=== PATIENT | female | born 1995 | race African-American/Black ===

== ENCOUNTER 2020-04-08 15:07 | Outpatient (REF) | payer MEDICARE, MEDICAID, SELFPAY ==
[2020-04-08 15:37] LABS: MANUAL DIFF FLAG NO
[2020-04-08 15:43] LABS: Basophils Percent Auto 0.2 % (0-2); Eosinophils Absolute Auto 0.1 X10*3/uL (0.0-0.4); Eosinophils Percent Auto 0.7 % (0-4); Hematocrit 38.5 % (37-47); Hemoglobin 12.2 g/dl (12.0-16.0); Imm Gran Abs Auto 0.03 X10*3/uL (0.00-0.03); Imm Gran Pct Auto 0.3 % (0.0-0.4); Lymphocytes Absolute Auto 4.8 X10*3/uL (1.2-4.9); Lymphocytes Percent Auto 52.4 % (20-40); Mean Corpuscular HGB Conc 31.7 g/dl (31.0-35.0); Mean Corpuscular Hemoglobin 26.8 pg (27.0-33.0); Mean Corpuscular Volume 84.4 fL (80-98); Mean Platelet Volume 8.9 fL (9.4-12.3); Monocytes Absolute Auto 0.4 X10*3/uL (0.1-1.2); Monocytes Percent Auto 4.7 % (2-11); Neutrophils Absolute Auto 3.8 X10*3/uL (2.0-8.3); Neutrophils Percent Auto 41.7 % (45-73); Platelet Count 350 X10*3/uL (160-400); Red Blood Count 4.56 X10*6/uL (4.20-5.50); Red Cell Distribution Width 12.6 % (11.0-16.0); White Blood Count 9.2 X10*3/uL (4.8-10.8)
[2020-04-08 16:17] LABS: Iron 81 mcg/dL (30-160); Percent Iron Saturation 22 % (15-50); Total Iron Binding Capacity 368 mcg/dL (228-428); Unsaturated Iron Binding 287 ug/dL
[2020-04-08 16:38] LABS: TSH reflex Free T4 0.81 mIU/mL (0.32-4.0)
[2020-04-08 16:51] LABS: Folate 14.4 ng/mL (> or = 4.0); Vitamin B12 519 pg/mL (200-900)
[2020-04-08 17:49] LABS: Estimated Average Glucose 151 mg/dL; Hemoglobin A1c % 6.9 %
[2020-04-09 04:22] LABS: HBS Num1 0.35 mIU/mL (0-7.99); HBc Num1 0.37 S/CO (0.00-0.79); Hepatitis B Core Antibody Nonreactive (Nonreactive); ~HepC Num1 14.27 S/CO (0.00-0.79); ~Hepatitis B Surface Antibody NONREACTIVE (Nonreactive); ~Hepatitis C Antibody Reactive (Nonreactive)
[2020-04-09 04:34] LABS: HBsAGNum1 0.35 S/CO (0.00-0.99); Hepatitis B Surface Antigen Negative (Negative)
[2020-04-14 22:27] LABS: Hepatitis C Genotype Not Detected
== END 2020-04-08 15:08 | disposition home or self-care (01) ==
LOC: HO.LAB 15:07
PROVIDERS: PCP Physician Assistant; Visit Provider Physician Assistant
DX: Z13.1 Encounter for screening for diabetes mellitus (principal); B18.2 Chronic viral hepatitis C; Z11.3 Encounter for screening for infections with a predominantly sexual mode of transmission; R20.2 Paresthesia of skin
CPT/HCPCS: 36415; 82607; 82746; 83036; 83540; 84443; 85025; 86704; 86706; 86803; 87340; 87902

== ENCOUNTER 2020-05-19 15:18 | Outpatient (REF) | payer MEDICARE, MEDICAID, SELFPAY ==
[2020-05-20 04:13] LABS: HIV AB/AG Nonreactive (Nonreactive); HIV Num 1 0.08 S/CO (0.00-0.99)
[2020-05-30 12:03] LABS: Hepatitis C Genotype Not Detected
== END 2020-05-19 15:19 | disposition home or self-care (01) ==
LOC: HO.LAB 15:18
PROVIDERS: Absent Provider Nurse Practitioner; PCP Physician Assistant; Visit Provider Physician Assistant
DX: B18.2 Chronic viral hepatitis C (principal)
CPT/HCPCS: 87389; 87902

== ENCOUNTER → 2020-05-20 13:49 | Outpatient (BNVA) | payer MEDICARE, MEDICAID, SELFPAY | PROVIDERS: PCP Physician Assistant; Referring Provider Physician Assistant; Visit Provider Nurse Practitioner | DX: Z13.89 Encounter for screening for other disorder (principal) | CPT/HCPCS: Q3014 ==

== ENCOUNTER 2020-06-07 14:25 | Outpatient (REF) | payer MEDICARE, MEDICAID, SELFPAY ==
[2020-06-08 11:56] LABS: BV Int Neg Control Negative (Negative); BV Int Pos Control Positive (Positive)
[2020-06-09 21:42] LABS: C. trachomatis RNA TMA NOT DETECTED (NOT DETECTED); N. gonorrhoeae RNA TMA NOT DETECTED (NOT DETECTED)
== END 2020-06-07 14:26 | disposition home or self-care (01) ==
LOC: HO.LAB 14:25
PROVIDERS: PCP Physician Assistant; Visit Provider Advanced Practice Midwife
DX: Z30.41 Encounter for surveillance of contraceptive pills (principal); Z32.02 Encounter for pregnancy test, result negative; N92.1 Excessive and frequent menstruation with irregular cycle; R35.0 Frequency of micturition; N90.89 Other specified noninflammatory disorders of vulva and perineum; R03.0 Elevated blood-pressure reading, without diagnosis of hypertension; F17.210 Nicotine dependence, cigarettes, uncomplicated
CPT/HCPCS: 81025; 87255; 87480; 87491; 87510; 87591; 87660; 99212

== ENCOUNTER 2020-06-29 09:05 | Outpatient (REF) | payer MEDICARE, MEDICAID, SELFPAY ==
[2020-06-29 16:15] LABS: Glucose Urine UA >=1000 MG/DL (NEG); Leukocyte Esterase Urine NEG (NEG); Nitrite Urine NEG (NEG); Specific Gravity - Urine 1.015 (1.005-1.025); Urine Blood NEG (NEG); Urine Ketones NEG (NEG); Urine Protein NEG (NEG-TRACE)
[2020-06-29 16:17] LABS: Appearance Urine HAZY; Color Urine YELLOW
[2020-06-29 16:25] LABS: Bacteria Urine TRACE /LPF; RBC Urine 0 /HPF (0); Squamous Epithelial Cell Urine 1+ /LPF; WBC Urine 0 /HPF (0-4)
[2020-06-30 09:47] LABS: BV Int Neg Control Negative (Negative); BV Int Pos Control Positive (Positive)
== END 2020-06-29 09:06 | disposition home or self-care (01) ==
LOC: HO.LAB 09:05
PROVIDERS: PCP Physician Assistant; Visit Provider Advanced Practice Midwife
DX: N76.0 Acute vaginitis (principal); L29.2 Pruritus vulvae; R35.0 Frequency of micturition
CPT/HCPCS: 81001; 87480; 87510; 87660; 99212

== ENCOUNTER 2020-07-23 11:52 | Outpatient (REF) | payer MEDICARE, MEDICAID, SELFPAY ==
[2020-07-23 13:16] LABS: Hematocrit 40.7 % (37-47); Hemoglobin 12.7 g/dl (12.0-16.0); Mean Corpuscular HGB Conc 31.2 g/dl (31.0-35.0); Mean Corpuscular Hemoglobin 26.6 pg (27.0-33.0); Mean Corpuscular Volume 85.3 fL (80-98); Mean Platelet Volume 9.9 fL (9.4-12.3); Platelet Count 318 X10*3/uL (160-400); Red Blood Count 4.77 X10*6/uL (4.20-5.50)
[2020-07-23 13:45] LABS: Alanine Aminotransferase 27 U/L (0-31); Albumin Level 4.1 g/dL (3.5-5.0); Alkaline Phosphatase 74 U/L (39-117); Anion Gap 10 (12-20); Aspartate Amino Transferase 24 U/L (5-31); Bilirubin Total 0.9 mg/dL (0.0-1.0); Blood Urea Nitrogen 8 mg/dL (9-16); Calcium 9.2 mg/dL (8.4-10.2); Carbon Dioxide 24 mmol/L (22-29); Chloride 102 mmol/L (96-108); Cholesterol 222 mg/dL; Estimated Glomerular Filt Rate > 60; Glucose Fasting 199 mg/dL (60-99); HDL Cholesterol 47 mg/dL; LDL Cholesterol Calculated 153 mg/dl; Sodium 132 mmol/L (135-145); Total Protein 7.2 g/dL (6.5-8.0); Triglycerides 111 mg/dL
[2020-07-23 13:56] LABS: Glucose Urine UA NEG (NEG); Leukocyte Esterase Urine NEG (NEG); Nitrite Urine NEG (NEG); Specific Gravity - Urine 1.025 (1.005-1.025); Urine Blood NEG (NEG); Urine Ketones 15 MG/DL (NEG); Urine Protein TRACE MG/DL (NEG-TRACE)
[2020-07-23 14:00] LABS: Appearance Urine CLEAR; Color Urine YELLOW
[2020-07-23 14:06] LABS: TSH reflex Free T4 0.87 uIU/mL (0.32-4.0)
[2020-07-23 14:47] LABS: Microalbum/Creatinine Ratio Ur 4.2 ug/mg cr
[2020-07-25 03:56] LABS: C. trachomatis RNA TMA NOT DETECTED (NOT DETECTED); N. gonorrhoeae RNA TMA NOT DETECTED (NOT DETECTED)
== END 2020-07-23 11:53 | disposition home or self-care (01) ==
LOC: HO.LAB 11:52
PROVIDERS: Advanced Practice Midwife; PCP Physician Assistant; Visit Provider Physician Assistant
DX: E11.65 Type 2 diabetes mellitus with hyperglycemia (principal); I10 Essential (primary) hypertension; N89.8 Other specified noninflammatory disorders of vagina; N92.1 Excessive and frequent menstruation with irregular cycle; R35.0 Frequency of micturition; B18.2 Chronic viral hepatitis C; Z11.3 Encounter for screening for infections with a predominantly sexual mode of transmission; Z11.8 Encounter for screening for other infectious and parasitic diseases
CPT/HCPCS: 36415; 80053; 80061; 81003; 82043; 84443; 85027; 87491; 87591

== ENCOUNTER 2020-10-18 13:43 | Outpatient (REF) | payer OTHER, SELFPAY ==
[2020-10-19 05:48] LABS: CT PCR NOT DETECTED (Not Detect.); NG PCR NOT DETECTED (Not Detect.)
[2020-10-19 10:47] LABS: BV Int Neg Control Negative (Negative); BV Int Pos Control Positive (Positive)
== END 2020-10-18 13:44 | disposition home or self-care (01) ==
LOC: HO.LAB 13:43
PROVIDERS: Advanced Practice Midwife; Visit Provider Advanced Practice Midwife
DX: Z01.411 Encounter for gynecological examination (general) (routine) with abnormal findings (principal); N92.1 Excessive and frequent menstruation with irregular cycle; N89.8 Other specified noninflammatory disorders of vagina; E11.65 Type 2 diabetes mellitus with hyperglycemia; F17.200 Nicotine dependence, unspecified, uncomplicated
CPT/HCPCS: 87480; 87491; 87510; 87591; 87660

== ENCOUNTER 2020-12-29 15:08 | Outpatient (REF) | payer OTHER, SELFPAY ==
[2020-12-29 15:42] LABS: Hematocrit 39.2 % (37-47); Hemoglobin 12.3 g/dl (12.0-16.0); Mean Corpuscular HGB Conc 31.4 g/dl (31.0-35.0); Mean Corpuscular Hemoglobin 26.9 pg (27.0-33.0); Mean Corpuscular Volume 85.6 fL (80-98); Platelet Count 359 X10*3/uL (160-400); Red Blood Count 4.58 X10*6/uL (4.20-5.50); Red Cell Distribution Width 12.8 % (11.0-16.0); White Blood Count 8.6 X10*3/uL (4.8-10.8)
[2020-12-29 15:49] LABS: Estimated Average Glucose 111 mg/dL; Hemoglobin A1c % 5.5 %
[2020-12-29 15:59] LABS: Alanine Aminotransferase 17 U/L (0-31); Albumin Level 4.6 g/dL (3.5-5.0); Alkaline Phosphatase 67 U/L (39-117); Anion Gap 14 (12-20); Aspartate Amino Transferase 21 U/L (5-31); Bilirubin Direct 0.2 mg/dL (0.0-0.5); Bilirubin Total 0.5 mg/dL (0.0-1.0); Blood Urea Nitrogen 9 mg/dL (9-16); Calcium 10.1 mg/dL (8.4-10.2); Carbon Dioxide 24 mmol/L (22-29); Chloride 104 mmol/L (96-108); Cholesterol 169 mg/dL; Estimated Glomerular Filt Rate > 60; Glucose Random 125 mg/dL (60-115); HDL Cholesterol 48 mg/dL; LDL Cholesterol Calculated 107 mg/dl; Potassium 4.1 mmol/L (3.3-5.1); Sodium 138 mmol/L (135-145); Triglycerides 71 mg/dL
[2020-12-29 16:28] LABS: Glucose Urine UA NEG (NEG); Leukocyte Esterase Urine NEG (NEG); Nitrite Urine NEG (NEG); Specific Gravity - Urine >= 1.030 (1.005-1.025); Urine Blood NEG (NEG); Urine Ketones NEG (NEG); Urine Protein TRACE MG/DL (NEG-TRACE)
[2020-12-29 16:32] LABS: Appearance Urine HAZY; Color Urine AMBER
== END 2020-12-29 15:09 | disposition home or self-care (01) ==
LOC: HO.LAB 15:08
PROVIDERS: PCP Physician Assistant; Visit Provider Internal Medicine
DX: Z01.818 Encounter for other preprocedural examination (principal)
CPT/HCPCS: 36415; 80048; 80061; 80076; 81003; 83036; 85027

== ENCOUNTER 2021-04-09 17:25 | Outpatient (REF) | payer OTHER, SELFPAY ==
[2021-04-09 17:33] LABS: Appearance Urine CLEAR; Color Urine YELLOW; Glucose Urine UA NEG (NEG); Leukocyte Esterase Urine NEG (NEG); Nitrite Urine NEG (NEG); Specific Gravity - Urine 1.025 (1.005-1.025); UACC Culture Trigger NO; Urine Blood 2+ (NEG); Urine Ketones NEG (NEG); Urine Protein TRACE MG/DL (NEG-TRACE)
[2021-04-09 17:41] LABS: Bacteria Urine 1+ /LPF; RBC Urine 0-2 /HPF (0); Squamous Epithelial Cell Urine 2+ /LPF; WBC Urine 0 /HPF (0-4)
== END 2021-04-09 17:26 | disposition home or self-care (01) ==
LOC: HO.LNP 17:25
PROVIDERS: Visit Provider Physician Assistant Medical
DX: R35.89 Other polyuria (principal)
CPT/HCPCS: 81001

== ENCOUNTER 2021-04-19 10:08 | Outpatient (REF) | payer OTHER, SELFPAY ==
--- NOTE | ~2021-04-19 | XR_ITS ---
EXAMINATION: XR ABDOMEN COMPLETE CLINICAL INDICATION: Dysuria COMPARISON: None TECHNIQUE: 2 views of the abdomen. FINDINGS: The bowel gas pattern is normal with no evidence of ileus or obstruction. No unusual soft tissue calcifications are noted. The bones are unremarkable. XR/XR abdomen 3V IMPRESSION: Unremarkable examination.
[2021-04-19 11:01] LABS: Hematocrit 36.9 % (37.0-47.0); Hemoglobin 11.6 g/dl (12.0-16.0); Mean Corpuscular HGB Conc 31.4 g/dl (31.0-35.0); Mean Corpuscular Hemoglobin 26.9 pg (27.0-33.0); Mean Corpuscular Volume 85.4 fL (80.0-98.0); Mean Platelet Volume 8.8 fL (9.4-12.3); Platelet Count 355 X10*3/uL (160-400); Red Blood Count 4.32 X10*6/uL (4.20-5.50); Red Cell Distribution Width 13.2 % (11.0-16.0); White Blood Count 7.8 X10*3/uL (4.8-10.8)
[2021-04-19 11:22] LABS: Estimated Average Glucose 117 mg/dL; Hemoglobin A1c % 5.7 %
[2021-04-19 11:34] LABS: Alanine Aminotransferase 19 U/L (0-31); Albumin Level 4.2 g/dL (3.5-5.0); Alkaline Phosphatase 62 U/L (39-117); Anion Gap 12 (12-20); Aspartate Amino Transferase 19 U/L (5-31); Bilirubin Total 0.4 mg/dL (0.0-1.0); Blood Urea Nitrogen 9 mg/dL (9-16); Calcium 9.3 mg/dL (8.4-10.2); Carbon Dioxide 24 mmol/L (22-29); Chloride 106 mmol/L (96-108); Cholesterol 216 mg/dL; Estimated Glomerular Filt Rate > 60; Glucose Fasting 105 mg/dL (60-99); HDL Cholesterol 49 mg/dL; LDL Cholesterol Calculated 145 mg/dl; Potassium 4.2 mmol/L (3.3-5.1); Sodium 138 mmol/L (135-145); Total Protein 7.7 g/dL (6.5-8.0); Triglycerides 110 mg/dL
[2021-04-19 12:00] LABS: TSH reflex Free T4 1.08 uIU/mL (0.32-4.0)
[2021-04-19 12:31] LABS: Creatinine Urine 195.15 mg/dL; Microalbum/Creatinine Ratio Ur 3.5 ug/mg cr
== END 2021-04-19 10:09 | disposition home or self-care (01) ==
LOC: HO.XRAY 10:08
PROVIDERS: PCP Physician Assistant; Visit Provider Physician Assistant
DX: R30.0 Dysuria (principal); E11.65 Type 2 diabetes mellitus with hyperglycemia; I10 Essential (primary) hypertension
CPT/HCPCS: 36415; 74021; 80048; 80053; 80061; 82043; 83036; 84443; 85027

== ENCOUNTER 2021-07-07 10:35 | Outpatient (REF) | payer OTHER, SELFPAY ==
--- NOTE | ~2021-07-07 | XR_ITS ---
EXAMINATION: XR KUB XR THORACIC SPINE CLINICAL INFORMATION: Thoracic spine pain. COMPARISON: KUB done on 04/19/2021. TECHNIQUE: Single frontal view of the abdomen and pelvis, 2 images and frontal, lateral views of the thoracic spine, 4 images were obtained. FINDINGS: KUB: Significant fecal residual is noted within the large bowel. Multiple phleboliths are seen in the pelvis. No evidence of any abnormal bowel distention. The stomach is collapsed. Overall no significant change since 04/19/2021. Thoracic spine: The heights of the thoracic vertebrae are normal. The intervertebral disc heights are normal. The posterior appendages are intact. The paraspinal soft tissues are unremarkable. XR/XR KUB IMPRESSION: 1. The radiographs of the abdomen shows significant fecal residual, similar to prior study dated 04/19/2021. 2. The radiographs of the thoracic spine appear unremarkable.
--- NOTE | ~2021-07-07 | XR_ITS ---
EXAMINATION: XR KUB XR THORACIC SPINE CLINICAL INFORMATION: Thoracic spine pain. COMPARISON: KUB done on 04/19/2021. TECHNIQUE: Single frontal view of the abdomen and pelvis, 2 images and frontal, lateral views of the thoracic spine, 4 images were obtained. FINDINGS: KUB: Significant fecal residual is noted within the large bowel. Multiple phleboliths are seen in the pelvis. No evidence of any abnormal bowel distention. The stomach is collapsed. Overall no significant change since 04/19/2021. Thoracic spine: The heights of the thoracic vertebrae are normal. The intervertebral disc heights are normal. The posterior appendages are intact. The paraspinal soft tissues are unremarkable. XR/XR thoracic spine 2V IMPRESSION: 1. The radiographs of the abdomen shows significant fecal residual, similar to prior study dated 04/19/2021. 2. The radiographs of the thoracic spine appear unremarkable.
[2021-07-07 11:07] LABS: Hematocrit 38.9 % (37.0-47.0); Hemoglobin 12.3 g/dl (12.0-16.0); Mean Corpuscular HGB Conc 31.6 g/dl (31.0-35.0); Mean Corpuscular Hemoglobin 27.3 pg (27.0-33.0); Mean Corpuscular Volume 86.3 fL (80.0-98.0); Mean Platelet Volume 8.9 fL (9.4-12.3); Platelet Count 333 X10*3/uL (160-400); Red Blood Count 4.51 X10*6/uL (4.20-5.50); Red Cell Distribution Width 12.9 % (11.0-16.0); White Blood Count 8.9 X10*3/uL (4.8-10.8)
[2021-07-07 11:15] LABS: Estimated Average Glucose 123 mg/dL; Hemoglobin A1c % 5.9 %
[2021-07-07 11:49] LABS: Alanine Aminotransferase 18 U/L (0-31); Albumin Level 4.1 g/dL (3.5-5.0); Alkaline Phosphatase 98 U/L (39-117); Anion Gap 10 (12-20); Aspartate Amino Transferase 19 U/L (5-31); Bilirubin Total 0.4 mg/dL (0.0-1.0); Blood Urea Nitrogen 11 mg/dL (9-16); Calcium 9.8 mg/dL (8.4-10.2); Carbon Dioxide 28 mmol/L (22-29); Chloride 102 mmol/L (96-108); Cholesterol 221 mg/dL; Estimated Glomerular Filt Rate > 60; Glucose Fasting 156 mg/dL (60-99); HDL Cholesterol 51 mg/dL; LDL Cholesterol Calculated 141 mg/dl; Potassium 5.1 mmol/L (3.3-5.1); Sodium 135 mmol/L (135-145); Total Protein 7.6 g/dL (6.5-8.0); Triglycerides 149 mg/dL
[2021-07-07 12:05] LABS: Microalbum/Creatinine Ratio Ur 4.1 ug/mg cr
[2021-07-07 12:15] LABS: TSH reflex Free T4 1.51 uIU/mL (0.32-4.0)
== END 2021-07-07 10:36 | disposition home or self-care (01) ==
LOC: HO.XRAY 10:35
PROVIDERS: PCP Physician Assistant; Visit Provider Physician Assistant
DX: R10.9 Unspecified abdominal pain (principal); M54.6 Pain in thoracic spine; E11.65 Type 2 diabetes mellitus with hyperglycemia; E66.01 Morbid (severe) obesity due to excess calories; Z68.36 Body mass index [BMI] 36.0-36.9, adult
CPT/HCPCS: 36415; 72070; 74018; 80053; 80061; 82043; 83036; 84443; 85027

== ENCOUNTER 2021-12-01 11:13 | Outpatient (REF) | payer OTHER, SELFPAY ==
[2021-12-01 12:10] LABS: Hematocrit 39.4 % (37.0-47.0); Hemoglobin 12.5 g/dl (12.0-16.0); Mean Corpuscular HGB Conc 31.7 g/dl (31.0-35.0); Mean Corpuscular Hemoglobin 27.2 pg (27.0-33.0); Mean Corpuscular Volume 85.7 fL (80.0-98.0); Mean Platelet Volume 9.1 fL (9.4-12.3); Platelet Count 362 X10*3/uL (160-400); Red Cell Distribution Width 13.3 % (11.0-16.0)
[2021-12-01 12:18] LABS: Estimated Average Glucose 131 mg/dL; Hemoglobin A1c % 6.2 %
[2021-12-01 12:41] LABS: Alanine Aminotransferase 13 U/L (0-31); Albumin Level 4.3 g/dL (3.5-5.0); Alkaline Phosphatase 69 U/L (39-117); Anion Gap 14 (12-20); Aspartate Amino Transferase 15 U/L (5-31); Bilirubin Total 0.7 mg/dL (0.0-1.0); Blood Urea Nitrogen 12 mg/dL (9-16); Calcium 9.4 mg/dL (8.4-10.2); Carbon Dioxide 24 mmol/L (22-29); Chloride 106 mmol/L (96-108); Cholesterol 237 mg/dL; Estimated Glomerular Filt Rate > 60; Glucose Fasting 166 mg/dL (60-99); HDL Cholesterol 47 mg/dL; LDL Cholesterol Calculated 174 mg/dl; Potassium 4.8 mmol/L (3.3-5.1); Sodium 139 mmol/L (135-145); Total Protein 7.6 g/dL (6.5-8.0); Triglycerides 84 mg/dL
[2021-12-01 13:01] LABS: TSH reflex Free T4 0.45 uIU/mL (0.32-4.0)
[2021-12-01 13:21] LABS: Appearance Urine CLOUDY; Color Urine YELLOW; Glucose Urine UA NEG (NEG); Leukocyte Esterase Urine NEG (NEG); Nitrite Urine NEG (NEG); PH 6.5 (5.0-8.0); UACC Culture Trigger NO; Urine Blood 3+ (NEG); Urine Ketones 5 MG/DL (NEG); Urine Protein 1+ MG/DL (NEG-TRACE)
[2021-12-01 13:32] LABS: RBC Urine TNTC /HPF (0); WBC Urine 0 /HPF (0-4)
[2021-12-01 13:33] LABS: Squamous Epithelial Cell Urine 1+ /LPF
== END 2021-12-01 11:14 | disposition home or self-care (01) ==
LOC: HO.LAB 11:13
PROVIDERS: Visit Provider Physician Assistant
DX: R10.9 Unspecified abdominal pain (principal); E11.65 Type 2 diabetes mellitus with hyperglycemia
CPT/HCPCS: 36415; 80048; 80053; 80061; 81001; 83036; 84443; 85027

== ENCOUNTER 2022-07-13 13:57 | Outpatient (REF) | payer OTHER, SELFPAY ==
[2022-07-13 15:55] LABS: CT PCR NOT DETECTED (Not Detect.); NG PCR NOT DETECTED (Not Detect.)
== END 2022-07-13 13:58 | disposition home or self-care (01) ==
LOC: HO.HMGCLNP 13:57
PROVIDERS: Visit Provider Internal Medicine
DX: Z20.2 Contact with and (suspected) exposure to infections with a predominantly sexual mode of transmission (principal); R30.0 Dysuria
CPT/HCPCS: 0353U; 87086

== ENCOUNTER → 2022-08-29 11:39 | Outpatient (BNVA) | payer OTHER, SELFPAY | PROVIDERS: PCP Physician Assistant; Visit Provider Advanced Practice Midwife | DX: N92.6 Irregular menstruation, unspecified (principal); E11.9 Type 2 diabetes mellitus without complications; F17.210 Nicotine dependence, cigarettes, uncomplicated; F19.11 Other psychoactive substance abuse, in remission; Z87.42 Personal history of other diseases of the female genital tract; Z30.09 Encounter for other general counseling and advice on contraception | CPT/HCPCS: 99212 ==

== ENCOUNTER 2022-09-04 13:59 | Outpatient (REF) | payer OTHER, SELFPAY ==
--- NOTE | ~2022-09-04 | US_ITS ---
EXAMINATION: US PELVIS CLINICAL INFORMATION: Heavy periods with cramping. COMPARISON: None available. TECHNIQUE: Ultrasound of the pelvis is performed using both transabdominal and transvaginal transducers along with Doppler. Transvaginal imaging is performed due to inadequate visualization transabdominally. FINDINGS: UTERUS: The uterus is anteverted and measures 9.9 x 4.2 x 5.8 cm. The double wall endometrial thickness is 0.4 mm. The uterus is smooth in contour and has normal myometrial echogenicity. No visible fibroid. Nabothian cysts are present in the cervix. ADNEXA: Both ovaries are visualized. There is normal color flow to the adnexa. There is no ovarian torsion. There is no pelvic ascites or fluid collection. Right ovary measures 4.7 x 2.3 x 3.5 cm for a volume of 19.6 mL. Left ovary measures 4.4 x 2.0 x 2.4 cm for a volume of 11 mL. US/US pelvic and transvaginal IMPRESSION: Negative exam.
== END 2022-09-04 14:00 | disposition home or self-care (01) ==
LOC: HO.HMGCX 13:59
PROVIDERS: PCP Physician Assistant; Visit Provider Advanced Practice Midwife
DX: Z87.42 Personal history of other diseases of the female genital tract (principal)
CPT/HCPCS: 76830; 76856

== ENCOUNTER → 2022-09-20 09:33 | Outpatient (BNVA) | payer OTHER, SELFPAY | PROVIDERS: PCP Physician Assistant; Visit Provider Advanced Practice Midwife | DX: Z30.09 Encounter for other general counseling and advice on contraception (principal); N88.8 Other specified noninflammatory disorders of cervix uteri; E11.65 Type 2 diabetes mellitus with hyperglycemia; I38 Endocarditis, valve unspecified; F17.210 Nicotine dependence, cigarettes, uncomplicated; F14.20 Cocaine dependence, uncomplicated; F11.20 Opioid dependence, uncomplicated; Z99.2 Dependence on renal dialysis; Z87.42 Personal history of other diseases of the female genital tract | CPT/HCPCS: 99212 ==

== ENCOUNTER 2022-10-03 13:00 | Outpatient (RCR) | payer OTHER, SELFPAY ==
--- NOTE | 2022-09-12 15:07 | MHC.PT.EP ---
[facility] [place] Office [place] Office [place] Office [address] [phone] F: [phone] F: [phone] F: [phone] F: [phone] Physical Therapy Plan of Care Date of Evaluation: Date of Surgery: Diagnosis: This is a 27 yo female presenting to skilled PT with a script for pain in thoracic spine. Assessment: This is a 27 yo female presenting to skilled PT with a script for pain in thoracic spine. Patient reporting that she has always had this back pain however has been increasing lately after stopping her suboxone. Pain is constant. Pain is located R side low back and deep . This is described as sharp and achy. Pain increases with stress, sleeping and waking in AM, activity (the next day or later on that day). She feels better with sitting but worse with laying down. Denies radiating symptoms or numbness or tingling. Assessment reveals pain that ranges from 3-10/10. Patient demos decreased lumbar and thoracic spine ROM, strength of core, back and glut, TTP at ITB and R side low back. Based on functional limitations, impaired QOL and decreased pain management patient is a good candidate for skilled PT 2x/wk for 4wks. Frequency and Duration: The patient will be seen 2x/wk for 4wks Short Term Goals: I in HEP Patient will improve lumbar ROM by at least 10% Patient will demo proper core stab in sitting, standing and supine without cues from PT Stuntman Goals: Patient will improve pain to no more than 4/10 at the worst Patient will demo proper squat and lifting techniques without pain or cues from PT Patient ill improve hip/glut strength by at least 1 grade Patient will improve oswestry by at least 10 points Treatment Plan: Modalities to reduce pain, spasms and effusion. Manual therapy to restore motion and function. Therapeutic exercise to improve strength and flexibility. Neuromuscular re-education for posture and balance. Therapeutic activities to return to functional activities of daily living. Electronically signed by: Loly Dias PT Please sign and return to therapist. Thank you for your referral.
--- NOTE | 2022-10-24 12:45 | MHC.PT.DC ---
[facility] [place] Office [place] Office [place] Office [address] [phone] F: [phone] F: [phone] F: [phone] F: [phone] Physical Therapy Discharge Report Diagnosis: This is a 27 yo female presenting to skilled PT with a script for pain in thoracic spine. Date of Surgery: Date of Evaluation: 09/12/22 Date of Discharge: 10/24/22 Treatments to Date: 3 Cancellations to Date: 0 No Shows to Date: 0 Discharge Status: Patient Elected to Stop Visit Non-compliance Discharge Summary: Patient came to eval and 2 appointments, has an HEP, called to self DC as she has other priorities. Electronically signed by: Loly Dias, PT Please sign and return to therapist. Thank you for your referral.
== END 2022-10-24 12:45 | disposition home or self-care (01) ==
LOC: HO.PTCHIC 13:00
PROVIDERS: Visit Provider Physician Assistant
DX: M54.6 Pain in thoracic spine (principal)
CPT/HCPCS: 97110; 97161

== ENCOUNTER 2023-06-20 10:15 | Outpatient (REF) | payer OTHER, SELFPAY ==
[2023-06-21 04:49] LABS: CT PCR NOT DETECTED (Not Detect.); NG PCR NOT DETECTED (Not Detect.)
[2023-06-21 09:54] LABS: BV Int Neg Control Negative (Negative); BV Int Pos Control Positive (Positive)
== END 2023-06-20 10:16 | disposition home or self-care (01) ==
LOC: HO.LNP 10:15
PROVIDERS: PCP Physician Assistant; Visit Provider Advanced Practice Midwife
DX: Z01.419 Encounter for gynecological examination (general) (routine) without abnormal findings (principal); N92.1 Excessive and frequent menstruation with irregular cycle; R03.0 Elevated blood-pressure reading, without diagnosis of hypertension; R23.2 Flushing; F17.200 Nicotine dependence, unspecified, uncomplicated; F11.20 Opioid dependence, uncomplicated; Z20.2 Contact with and (suspected) exposure to infections with a predominantly sexual mode of transmission; Z79.899 Other long term (current) drug therapy
CPT/HCPCS: 0353U; 87480; 87510; 87660; 88142

== ENCOUNTER 2023-06-20 10:15 | Outpatient (AMB) | payer OTHER, SELFPAY ==
--- NOTE | 2023-06-20 10:18 | MHC.OFFVIS ---
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 (Boaz) Allergies seasonal Allergy (Unknown, Uncoded 06/20/23 10:23) unknown Medication List - Last Reconciled 06/20/23 by Claudia Rowe CNM acetaminophen 500 mg PO Q6H PRN 10 days atomoxetine 80 mg PO DAILY ibuprofen 800 mg PO Q8H 10 days norethindrone (contraceptive) 0.35 mg PO DAILY semaglutide (Ozempic) 0.25 mg (0.368 mL) subcut QWEEK 30 days Is last menstrual period known: No Post menopausal: No HPI Irregular Menses HPI Details Patient was scheduled for irregular bleeding but I missed took her visit for an annual exam and so we covered a lot of the issues in annual exam as well so the visit was converted. Patient has been doing very well and has been gradually losing weight. She has intentions of really working on about 50 more lb she would like to get to 200 and within eventual goal to get to 180. She says her diabetes is doing well she wishes the Ozempic would help her more with weight loss but that is okay she is doing the best she can. In reviewing her history she weaned off the Suboxone last spring and she is feeling well and she is doing very very well with her recovery. She did break-up with her partner though they are still talking and are still friends so anything is possible but for now she has not sexually active. She has been taking norethindrone control pills partly because of smoking and because of previous elevated blood pressures but her recent blood pressures were within normal limits. Since the 1st time she was weighed in this computer system she has lost a a net 30 lb!! She has had a question as to whether not she is ever had herpes last year she had a little cut on her clitoris that could have been suspicious and sometimes when she has having a bowel movement she feels little cuts in her rectum that she wonders if they could be herpes. There is nothing visible that she can see. She does also shaved closely in these areas and so that is a possibility as well [facility] Medical History Polysubstance abuse Endocarditis DMII (diabetes mellitus, type 2) History of renal dialysis Surgical History History of wisdom tooth extraction Family History Maternal Grandmother Diabetes Other Mental health disorder Substance use disorder Social History Housing: House Alcohol intake: current Alcohol intake frequency: holidays/special occasions only Patient Tobacco Use Status: Current everyday Tobacco user Tobacco use type: Cigarette Cigarettes Per Day: 7 e-Cigarette/Vaping Use: Never Used Second Hand Smoke Exposure: No Substance Use Type: Crack/Cocaine, IV Drugs and Opiates service: No Current occupational status: unemployed Gender identity: Female Cognitive needs: No Hearing needs: No Vision needs: No Female Reproductive History Menstrual Age of Menarche: 7 control method: pills Total pregnancies: 4 Ab induced: 3 Ab spontaneous: 1 Date of last pap smear: 02/20/20 (negative) Physical Exam Vital Signs: Last Vital Signs BP 120/76 06/20/23 10:19 BMI result Body Mass Index 34.6 Const General: healthy appearing, comfortable, no acute distress, well developed and alert Nutritional Appearance: average body habitus Orientation/consciousness: patient oriented x3 Limitations: no limitations HEENT Head: Yes normocephalic Neck Neck: Yes normal visual inspection Chest Chest palpation & inspection: normal inspection of the chest Breast/axilla inspection: normal inspection of the breasts and normal inspection of the axillae Breast/axilla palpation: normal palpation of the breasts and normal palpation of the axillae Resp Effort & Inspection: normal respiratory effort GI Inspection: Yes normal to inspection, No Abdominal wall edema and No distended Palpation (GI): Soft to palpation and nontender Other: Normal external exam vagina pink and moist cervix nulliparous midposition uterus is anteverted small mobile nontender good tone with Kegel adnexa not enlarged nontender. No lesions seen anywhere. It was a little bit of dark red mucousy menstrual type blood coming from os but it was scant. General: Yes bladder normal to palpation External Female Exam: normal external appearance and normal appearance of the urethra Speculum Exam - Vagina: normal appearance of the vagina, normal palpation and normal vaginal discharge Speculum Exam - Cervix: normal appearance of the cervix, normal palpation and nontender Bimanual exam- vagina & uterus: normal bimanual exam, normal palpation, uterine size normal, bladder normal to palpation, consistency normal, normal palpation, uterine mobility normal, uterine shape normal, No Cervical tenderness present, non-tender and no cervical motion tenderness Bimanual Exam- Adnexa, other: normal adnexae, no masses, normal and No adnexal tenderness Neuro General: patient oriented x3 Assessment & Plan Assessment & Plan (1) Family planning counseling: Code(s): Z30.09 - Encounter for other general counseling and advice on contraception (2) control counseling: Code(s): Z30.09 - Encounter for other general counseling and advice on contraception (3) Cervical cancer screening: Comment: Last Pap was negative 2019. Code(s): Z12.4 - Encounter for screening for malignant neoplasm of cervix (4) Tobacco dependence: Code(s): F17.200 - Nicotine dependence, unspecified, uncomplicated (5) Opiate dependence: Comment: States she has weaned off Suboxone and everything and is doing well. Code(s): F11.20 - Opioid dependence, uncomplicated Qualifiers: Substance use status: uncomplicated Qualified Code(s): F11.20 - Opioid dependence, uncomplicated (6) Elevated BP without diagnosis of hypertension: Code(s): R03.0 - Elevated blood-pressure reading, without diagnosis of hypertension (7) Well woman exam with routine gynecological exam: Code(s): Z01.419 - Encounter for gynecological examination (general) (routine) without abnormal findings (8) Encounter for screening examination for sexually transmitted disease: Code(s): Z11.3 - Encounter for screening for infections with a predominantly sexual mode of transmission (9) Irregular menstruation, unspecified: Code(s): N92.6 - Irregular menstruation, unspecified (10) Breakthrough bleeding on control pills: Code(s): N92.1 - Excessive and frequent menstruation with irregular cycle Plan -----Discussed in this visit the following: healthy balanced diet, regular and consistent exercise, getting recommended health screens, doing the best she can for her particular health concerns, kegel exercises, pap smear screening and followup recommendations, mammography screening and SBE, normal changes in cycles in her life stage--- . Discussed that it is possible to have breakthrough bleeding on any kind of control method at any time and it did not sound alarming. Discussed options of going off the pills altogether since she has not sexually active right now continuing on the norethindrone continuing on the norethindrone and stopping them at some point if she so chose and then if she needed control making sure that she would start again with her., or switching to combination control pills that discussion did not get as far as clarifying about cigarette smoking she decided to stick wi the pills th she is on for now and knows that she can stop them at some point if she so chooses. Discussed that I did not see any evidence of herpes at this present time discussed the waxing and waning nature and if she ever thought she had a real outbreak she could call for a prescription she can not really identify ever having had a very identifiable will outbreak. Congratulated her on her hard work both at losing the weight getting off the Suboxone and making positive changes in her life. Orders: Orders Bacterial Vaginosis Panel Today Z20.2 - Contact with and (suspected) exposure to infections with a predominantly sexual mode of transmission Pap Smear Today Z12.4 - Encounter for screening for malignant neoplasm of cervix CT NG by PCR Today Z20.2 - Contact with and (suspected) exposure to infections with a predominantly sexual mode of transmission Medications: Refilled norethindrone (contraceptive) 0.35 mg PO DAILY 84 tabs 4RF Coding Level of Care Code Est Pt Prev Care 18-39y(24697) Diagnoses Family planning counseling Z30.09 control counseling Z30.09 Cervical cancer screening Z12.4 Tobacco dependence F17.200 Uncomplicated opioid dependence F11.20 Substance use status: uncomplicated Elevated BP without diagnosis of hypertension R03.0 Well woman exam with routine gynecological exam Z01.419 Encounter for screening examination for sexually transmitted disease Z11.3 Irregular menstruation, unspecified N92.6 Breakthrough bleeding on control pills N92.1
[2023-06-20 10:19] VITALS: BP 120/76; BMI 34.6
== END 2023-06-20 11:21 | disposition home or self-care (01) ==
PROVIDERS: PCP Physician Assistant; Visit Provider Advanced Practice Midwife
DX: Z01.419 Encounter for gynecological examination (general) (routine) without abnormal findings (principal); N92.1 Excessive and frequent menstruation with irregular cycle; F17.200 Nicotine dependence, unspecified, uncomplicated; F11.21 Opioid dependence, in remission; R03.0 Elevated blood-pressure reading, without diagnosis of hypertension; Z11.3 Encounter for screening for infections with a predominantly sexual mode of transmission; N92.6 Irregular menstruation, unspecified
CPT/HCPCS: 99395

== ENCOUNTER 2024-01-14 13:16 | Outpatient (AMB) | payer OTHER, SELFPAY ==
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
[2024-01-14 13:30] VITALS: BP 110/66; PULSE 108; TEMP 36.8; O2SAT 98; BMI 35.7
== END 2024-01-14 14:27 | disposition home or self-care (01) ==
PROVIDERS: PCP Physician Assistant; Visit Provider Physician Assistant
DX: M54.2 Cervicalgia (principal)
CPT/HCPCS: 99213

== ENCOUNTER 2024-01-28 13:03 | Outpatient (AMB) | payer OTHER, SELFPAY ==
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
[2024-01-28 13:09] VITALS: BP 130/98; PULSE 112; O2SAT 98; BMI 35.7
== END 2024-01-28 14:21 | disposition home or self-care (01) ==
PROVIDERS: PCP Physician Assistant; Visit Provider Registered Nurse
DX: N30.00 Acute cystitis without hematuria (principal); Z13.9 Encounter for screening, unspecified
CPT/HCPCS: 81003; 82948; 99213

== ENCOUNTER 2024-01-28 13:47 | Outpatient (REF) | payer OTHER, SELFPAY ==
[2024-01-29 05:46] LABS: CT PCR NOT DETECTED (Not Detect.); NG PCR NOT DETECTED (Not Detect.)
== END 2024-01-28 13:48 | disposition home or self-care (01) ==
LOC: HO.LAB 13:47
PROVIDERS: Visit Provider Registered Nurse
DX: Z11.3 Encounter for screening for infections with a predominantly sexual mode of transmission (principal)
CPT/HCPCS: 87491; 87591

== ENCOUNTER 2024-02-07 08:22 | Outpatient (AMB) | payer OTHER, SELFPAY ==
--- NOTE | 2024-02-07 08:26 | MHC.PC.OV ---
Vital Signs 02/07/24 08:28 Height 5 ft 11 in Weight 255 lb 4 oz BMI 35.6 BP 120/78 Blood Pressure Location Lt brachial Position Sitting Pulse 105 H Pulse Source Pulse Oximeter Pulse Oximetry (%) 98 Oxygen Delivery Method Room Air Intake Visit Reasons: Medication info Intake Note: Patient is here to follow up on medication review. 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: Not Required per policy Accompanied by: Self / Same As Patient Allergies seasonal Allergy (Unknown, Uncoded 02/07/24 08:56) unknown Medication List - Last Reconciled 02/07/24 by Ramy Jackson PA-C atomoxetine 100 mg PO QAM semaglutide (Ozempic) 0.25 mg (0.368 mL) subcut QWEEK 30 days Tobacco use date assessed: 02/07/24 Dental Screening Dental Screen Date: 02/07/24 Did you have a dental visit in the last 12 months?: No Did you have a dental problem in the last 6 months where you did not have access to dental care?: No Was dental information given to patient?: Patient has dentist HPI Medication info HPI Details Patient is a 28 year female here today for a follow-up visit. ?Patient has a past medical history significant for opiate dependence, smoker ,history of endocarditis, type 2 diabetes. Concerns--> continues to have right-sided thoracic spine pain did get x-ray of her thoracic spine significant findings. She reports pain is intermittent at times even moderate to severe. She has done physical therapy in the past without significant relief. She is now willing to see pain management for possible injection to help reduce her pain ADD: She reports having a diagnosis of ADHD as a child and was treated with many different medications. She is now on Strattera 100 mg which seems to be helpful. She is now seeing a mental therapist and a psychiatrist .? Type 2 diabetes:? Was on metformin in the past which did control her diabetes. Now off of metformin and on Ozempic 0.25 mg. She is interested in higher dose of Ozempic for added benefit of weight loss as she has been having a difficult time losing weight. .. Opiate dependence (in remission):? She has completely weaned off Suboxone . Now been sober from street opiates over the last 6 years? [facility] Medical History Polysubstance abuse Endocarditis DMII (diabetes mellitus, type 2) History of renal dialysis Surgical History History of wisdom tooth extraction Family History Maternal Grandmother Diabetes Other Mental health disorder Substance use disorder Social History Housing: House Alcohol intake: current Alcohol intake frequency: holidays/special occasions only Patient Tobacco Use Status: Current everyday Tobacco user Tobacco use type: Cigarette Cigarette Packs Per Day: 0.5 Cigarettes Per Day: 8 e-Cigarette/Vaping Use: Never Used Second Hand Smoke Exposure: Yes Substance Use Type: Crack/Cocaine, IV Drugs and Opiates service: No Current occupational status: unemployed Gender identity: Female Cognitive needs: No Hearing needs: No Vision needs: Yes (Glasses) Female Reproductive History Menstrual Age of Menarche: 7 Questionnaire PHQ-9 Over the last 2 weeks, how often have you been bothered by any of the following problems? 1. Little interest or pleasure in doing things: not at all 2. Feeling down, depressed, or hopeless: not at all 3. Trouble falling or staying asleep, or sleeping too much: not at all 4. Feeling tired or having little energy: not at all 5. Poor appetite or overeating: not at all 6. Feeling bad about yourself - or that you are a failure or have let yourself or your family down: not at all 7. Trouble concentrating on things, such as reading the newspaper or watching television: not at all 8. Moving or speaking so slowly that other people could have noticed. Or the opposite - being so fidgety or restless that you have been moving around a lot more than usual: not at all 9. Thoughts that you would be better off or of hurting yourself in some way: not at all Total score: 0 Depression Screening Interpretation: Negative Depression Screening Done: Yes 73005 - PHQ-9 Billing: Yes Source: Developed by Drs. Rubens Fine, Akiko Simmons, Anastacio Singh and colleagues, with an educational rachel from [employer]. Thrive Questionnaire Date Thrive assessed: 02/07/24 I am a: Patient What is your living situation today?: I have a steady place to live Within the past 12 months, did the food you bought not last and you didn't have the money to get more?: Never true Within the past 12 months, did you worry whether your food would run out before you got money to buy more?: Never true Do you have trouble paying for medicines?: No Do you have trouble getting transportation to medical appointments?: No Do you have trouble paying your heating and electricity bill?: No Do you have trouble taking care of your child, family member or friend?: No Do you have trouble with day-to-day activities such as bathing, preparing meals, shopping, managing finances, etc.?: No Are you currently unemployed and looking for a job?: No Are you interested in more education?: No Currently or been in a relationship where the following occur: No concerns reported THRIVE Score: 0 AUDIT C Alcohol Use Questionnaire (AUDIT-C) 1. How often do you have a drink containing alcohol?: Monthly or less 2. How many drinks containing alcohol do you have on a typical day when you are drinking?: 1 or 2 Total Score: 1 VALDEZ-7 AMB Questionnaire VALDEZ-7 Date VALDEZ - 7 assessed: 02/07/24 Feeling nervous, anxious, or on edge: 0 = Not at all Not being able to stop or control worryin = Not at all Worrying too much about different things: 0 = Not at all Trouble relaxin = Not at all Being so restless that it is hard to sit still: 0 = Not at all Becoming easily annoyed or irritable: 0 = Not at all Feeling afraid as if something awful might happen: 0 = Not at all Total VALDEZ-7 score (0-4 normal; 5-9 mild; 10-14 moderate; 15-21 severe): 0 Source: Developed by Drs. Rubens Fine, Akiko Simmons, Anastacio Singh and colleagues, with an educational rachel from [employer]. VALDEZ-7 Assessment Billing VALDEZ-7 Assessment Tool: VALDEZ-7 Assessment 88341 Review of Systems Const Denies headache(s) Eyes Denies loss of vision ENT Denies vertigo, Denies dizziness, Denies headache(s) and Denies sore throat Card Denies chest pain, Denies leg edema and Denies lightheadedness Resp Denies cough, Denies hemoptysis and Denies wheezing GI Denies abdominal pain, Denies melena, Denies constipation, Denies diarrhea and Denies vomiting Denies urinary frequency, Denies dysuria and Denies urinary urgency Musc Denies arthralgias, Denies joint swelling, Denies numbness and Denies tingling Neuro Denies Abnormal speech present, Denies behavioral changes, Denies vertigo, Denies dizziness, Denies headache(s), Denies loss of vision, Denies memory loss, Denies numbness and Denies tingling Psych Denies anxiety, Denies behavioral changes, Denies depression, Denies memory loss and Denies panic attacks Louis/Lymph Denies easy bleeding and Denies easy bruising Aller/Immun Denies wheezing Physical exam (Primary Care) Vital Signs: Last Vital Signs Pulse 105 H 02/07/24 08:28 BP 120/78 02/07/24 08:28 Pulse Ox 98 02/07/24 08:28 Oxygen Delivery Method Room Air 02/07/24 08:28 BMI result Body Mass Index 35.6 Tobacco/Smoking Status: Tobacco use Status Tobacco use date assessed 02/07/24 02/07/24 08:34 Patient Tobacco Use Status Current everyday Tobacco 02/07/24 08:34 Tobacco use type Cigarette 02/07/24 08:34 e-Cigarette/Vaping Use Never Used 02/07/24 08:34 PHQ-9: PHQ-9 Score PHQ-9: Total score 0 02/07/24 08:34 Depression Screening Interpretation: Negative Thrive Assessment: Date of Thrive Assessment Date Thrive assessed 02/07/24 02/07/24 08:34 Currently or been in a relationship where the following occur: No concerns reported Const General: healthy appearing, no acute distress, alert and awake Nutritional Appearance: well nourished Orientation/consciousness: oriented to person, oriented to place and oriented to time HENMT Ears: TM's normal bilaterally General nose exam: Normal nasal mucous membranes and turbinates present Eyes Conjunctivae: conjunctivae normal Sclerae: sclerae normal Pupils: Equal, round and reactive pupils present Neck Neck: Yes no lymphadenopathy and Yes no JVD Thyroid: Thyroid normal Carotids: no bruits Resp Effort & Inspection: normal respiratory effort and not tachypneic Auscultation: no crackles, no rales, no rhonchi and no wheezes Cardio Rate: regular rate Rhythm: regular rhythm Heart sounds: no murmurs and normal S1 and S2 GI Palpation (GI): Soft to palpation, nontender, no hepatomegaly and no splenomegaly Auscultation: normal bowel sounds Skin General skin exam: no rashes or lesions noted and dry skin Neuro General: oriented to person, oriented to place and oriented to time Cranial nerves: Yes Equal, round and reactive pupils present Speech: No Abnormal speech present Gait exam (Neuro): Normal gait present Motor exam (neuro): no tremor noted Extrem Right upper extremity: full ROM Left upper extremity: full ROM Right lower extremity: full ROM; no edema Left lower extremity: full ROM; no edema Psych Mental Status: mental status grossly normal Speech and movement: Normal speech and movement present Affect: normal affect Attitude: cooperative Thought process: Normal thought process present Assessment and Plan Assessment & Plan (1) DMII (diabetes mellitus, type 2): Code(s): E11.9 - Type 2 diabetes mellitus without complications Qualifiers: Diabetes mellitus breaker tender insulin use: without senior living use Diabetes mellitus complication status: with hyperglycemia Qualified Code(s): E11.65 - Type 2 diabetes mellitus with hyperglycemia Plan: Patient has a history of type 2 diabetes, has been on Ozempic 0.25 weekly. Has noted some reduction in her appetite. Was on metformin previously though had some side effects. She is very motivated to lose weight and get better control over sugars. Goal A1c is to be below 7.0 Will recheck fasting labs including A1c (2) Tobacco dependence: Code(s): F17.200 - Nicotine dependence, unspecified, uncomplicated Plan: Patient does understand she needs to quit smoking . She does understand she needs to quit smoking. At this time not interested in nicotine replacement. (3) MDD (major depressive disorder), recurrent episode, moderate: Code(s): F33.1 - Major depressive disorder, recurrent, moderate Plan: Patient is now speaking with a mental health therapist in his mental health med provider. Now on Strattera 100 mg which she feels has a good effect on her attention and focus. (4) Opiate dependence: Comment: States she has weaned off Suboxone and everything and is doing well. Code(s): F11.20 - Opioid dependence, uncomplicated Qualifiers: Substance use status: uncomplicated Qualified Code(s): F11.20 - Opioid dependence, uncomplicated Plan: Patient now off of opiates and continues to abstain from opiates. Has been sober from street opiates over the last 6 years (5) Obese: Code(s): E66.9 - Obesity, unspecified Qualifiers: Obesity type: due to excess calories Obesity classification: adult class 2 (BMI 35 - 39.9) Serious obesity comorbidity presence: with serious comorbidity Body mass index: BMI 37.0-37.9 Qualified Code(s): E66.01 - Morbid (severe) obesity due to excess calories; Z68.37 - Body mass index [BMI] 37.0-37.9, adult Plan: She is interested in increasing her dose of Ozempic for more weight loss. She is seems very motivated to be more physically active and adapt to better eating habits to reduce her weight. She mentions a goal weight of 170 lb though for now will try to get below 200 lbs over the next 3 months (6) ADHD (attention deficit hyperactivity disorder): Code(s): F90.9 - Attention-deficit hyperactivity disorder, unspecified type Qualifiers: Attention deficit-hyperactivity disorder type: predominantly hyperactive Qualified Code(s): F90.1 - Attention-deficit hyperactivity disorder, predominantly hyperactive type Plan: As per HPI patient now seeing a mental health med provider and a therapist. She is on Strattera 100 mg that she feels his helpful for attention focus. 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 (7) VALDEZ (generalized anxiety disorder): Code(s): F41.1 - Generalized anxiety disorder Plan: Patient's VALDEZ-7 score 0. Patient does have a history of a generalized anxiety disorder though has been much better since having more sobriety in her belt and seeing a mental health therapist and psychiatrist. (8) Thoracic spine pain: Code(s): M54.6 - Pain in thoracic spine Plan: Patient does have chronic thoracic right-sided pain that comes and goes. She reports at times it is moderate to severe. Has gotten x-rays without any significant findings.. She has tried NSAIDs and muscle relaxers in the past. Has done physical therapy which was somewhat helpful though has not stayed consistent. She is interested in seeing pain management for possible trigger point injection to reduce her pain. Orders: Orders Comprehensive [place]. Panel Fast Today E11.65 - Type 2 diabetes mellitus with hyperglycemia Complete Blood Count no Diff Today E11.65 - Type 2 diabetes mellitus with hyperglycemia Hemoglobin A1c Today E11.65 - Type 2 diabetes mellitus with hyperglycemia Referrals Pain Management Referral M54.6 - Pain in thoracic spine Medications: New semaglutide (Ozempic) 0.5 mg (0.736 mL) subcut QWEEK 4 weeks 3 mL 3RF E11.65 - Type 2 diabetes mellitus with hyperglycemia Discontinued semaglutide (Ozempic) Discontinued Reason: Doctor's Order 0.25 mg (0.368 mL) subcut QWEEK 30 days 3 mL 2RF E11.65 - Type 2 diabetes mellitus with hyperglycemia Patient Instructions: Goal: A1c to be below 7.0 Barriers: Adherence to physical activity and healthy eating habits Coding Level of Care Code Est Pt Level 4 (43996) Diagnoses Type 2 diabetes mellitus with hyperglycemia, without long-term current use of insulin E11.65 Diabetes mellitus breaker tender insulin use: without senior living use Diabetes mellitus complication status: with hyperglycemia Tobacco dependence F17.200 MDD (major depressive disorder), recurrent episode, moderate F33.1 Uncomplicated opioid dependence F11.20 Substance use status: uncomplicated Class 2 severe obesity due to excess calories with serious comorbidity and body mass index (BMI) of 37.0 to 37.9 in adult E66.01; Z68.37 Obesity type: due to excess calories Obesity classification: adult class 2 (BMI 35 - 39.9) Serious obesity comorbidity presence: with serious comorbidity Body mass index: BMI 37.0-37.9 Attention deficit hyperactivity disorder (ADHD), predominantly hyperactive type F90.1 Attention deficit-hyperactivity disorder type: predominantly hyperactive VALDEZ (generalized anxiety disorder) F41.1 Thoracic spine pain M54.6 Additional Codes VALDEZ-7 Assessment Billing - VALDEZ-7 Assessment Tool: VALDEZ-7 Assessment [id number] ([id number])
[2024-02-07 08:28] VITALS: BP 120/78; PULSE 105; O2SAT 98; BMI 35.6
== END 2024-02-07 09:13 | disposition home or self-care (01) ==
PROVIDERS: PCP Physician Assistant; Visit Provider Physician Assistant
DX: E11.65 Type 2 diabetes mellitus with hyperglycemia (principal); F17.200 Nicotine dependence, unspecified, uncomplicated; F33.1 Major depressive disorder, recurrent, moderate; F11.20 Opioid dependence, uncomplicated; E66.01 Morbid (severe) obesity due to excess calories; Z68.37 Body mass index [BMI] 37.0-37.9, adult; F90.1 Attention-deficit hyperactivity disorder, predominantly hyperactive type; F41.1 Generalized anxiety disorder; M54.6 Pain in thoracic spine
CPT/HCPCS: 96127; 99214

== ENCOUNTER 2024-02-29 11:32 | Outpatient (AMB) | payer OTHER, SELFPAY ==
--- NOTE | 2024-02-29 11:33 | A.OFFVIS_ITS ---
Vital Signs 02/29/24 11:42 Height 5 ft 11 in Weight 250 lb 4 oz BMI 34.9 BP 122/76 Blood Pressure Location Lt brachial Position Sitting Respiration 16 Pulse 102 H Pulse Source Pulse Oximeter Pulse Oximetry (%) 98 Oxygen Delivery Method Room Air Intake Visit Reasons: Pain in thoracic spine Intake Note: Patient comes in for initial visit was referred by primary care. Reports pain 7/10. Allergies seasonal Allergy (Unknown, Uncoded 02/07/24 08:56) unknown HPI Comments Details: Garrett is very pleasant 28 years old female who presents today in my office with complains on pain in the center of the lumbar lower back. She reports that her pain is mostly on the right. The pain started 2 years ago she always was told that her pain is secondary to some muscle problems however she tried physical therapy and it did not relieve her pain at all. She does not relate her pain to any events. Her pain onset was gradual. She can not sleep normally because of her pain. She can not do activities of daily living. She can take care of herself and and she can function normally. She is working full-time. She reports that weather changes in movements aggravate her pain. In terms of tissue damage she reports her pain as stabbing, lancinating, sharp, cutting, lacerating, dull, hurting, heavy, tiring, exhausting. She reports today that her pain level is 9/10. She had images of the thoracic spine which were unremarkable there is no history of lumbar spine images, however when I examined the patient's abdominal x-ray they were possibility of enlarged arthritis in the upper lumbar spine. She had extensive course of physical therapy to help her pain she reports that even with home exercise program she does not get any improvement. She never had any injections in her back. Her past medical history significant for multiple problems. 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 She suffer from headaches she has diabetes and she has hepatitis C. She also suffer from ovarian cyst. She never had any surgeries before. She went to the rehab for her addiction and was on the Suboxone treatment for 2 years. Her last Suboxone was 5 years ago. She smokes 1 pack per cigarettes a day. She drinks socially alcohol she drinks caffeinated beverages and she admits in the past recreational drugs. She denies current recreational drugs problems. [facility] Medical History Polysubstance abuse Endocarditis DMII (diabetes mellitus, type 2) History of renal dialysis Surgical History History of wisdom tooth extraction Family History Maternal Grandmother Diabetes Other Mental health disorder Substance use disorder Social History Housing: House Alcohol intake: current Alcohol intake frequency: holidays/special occasions only Patient Tobacco Use Status: Current everyday Tobacco user Tobacco use type: Cigarette Cigarette Packs Per Day: 0.5 Cigarettes Per Day: 8 e-Cigarette/Vaping Use: Never Used Second Hand Smoke Exposure: Yes Substance Use Type: Crack/Cocaine, IV Drugs and Opiates service: No Current occupational status: unemployed Gender identity: Female Cognitive needs: No Hearing needs: No Vision needs: Yes (Glasses) Female Reproductive History Menstrual Age of Menarche: 7 Review of Systems Const Reports no additional complaints ENT Reports Normal hearing present Card Reports no additional complaints Resp Reports no additional complaints Musc Reports as per HPI Neuro Reports no additional complaints, Reports Normal hearing present, Denies Abnormal speech present and Denies Sensory deficit (Neuro) Psych Reports no additional complaints Physical Exam Vital Signs: Last Vital Signs Pulse 102 H 02/29/24 11:42 Resp 16 02/29/24 11:42 BP 122/76 02/29/24 11:42 Pulse Ox 98 02/29/24 11:42 Oxygen Delivery Method Room Air 02/29/24 11:42 BMI result Body Mass Index 34.9 Const General: no acute distress Nutritional Appearance: well nourished and obese (Trivial obesity) Orientation/consciousness: patient oriented x3 Eyes General: appearance normal, both eyes and all related structures Pupils: Equal, round and reactive pupils present EOM: EOMs intact bilaterally Neck Neck: Yes full ROM Chest Chest palpation & inspection: normal inspection of the chest Resp Effort & Inspection: normal respiratory effort, able to speak in complete sentences, normal respiratory pattern, no audible wheezes and no cough Cardio Jugular venous distension: no JVD GI Inspection: Yes normal to inspection Back/Spine/Pelvis Other: She is able to stand on bilateral tiptoes and on bilateral heels without any difficulty. She is able to lift the great toe in separation from the rest of the toes from the ground bilaterally. This demonstrates normal function of L4-5 and S1 lumbar vertebra. SLR is negative bilaterally. Nathan test is negative bilaterally. Tenderness on palpation in paraspinal regions on the right of the lumbar spine. No tenderness on palpation midline no tenderness on palpation on the left. Loading test is positive on the right. Negative on the left. Valsalva maneuver is negative for pain increase. Neuro General: patient oriented x3 and gait normal Cranial nerves: Yes CN's II-XII intact bilaterally, Yes Equal, round and reactive pupils present, Yes Normal hearing present and Yes Ability to bilaterally elevate shoulders present Speech: No Abnormal speech present Gait exam (Neuro): Normal gait present Motor exam (neuro): 5/5 motor strength present throughout Sensory Exam: No Sensory deficit (Neuro) Extrem General: No pedal edema Psych Speech and movement: Normal speech and movement present Affect: normal affect Attitude: cooperative Thought process: Normal thought process present Thought content: Normal thought content present Insight: Good insight present (Psych) Judgement: Good judgement present (Psych) Results Reviewed Results Reviewed: I personally reviewed abdominal x-ray which were performed few years ago and got x-ray demonstrated some possible facet enlargement on the upper lumbar spine vertebra. Assessment & Plan Assessment & Plan (1) Chronic pain syndrome: Code(s): G89.4 - Chronic pain syndrome Category: Medical (2) Spondylosis of lumbar region without myelopathy or radiculopathy: Code(s): M47.816 - Spondylosis without myelopathy or radiculopathy, lumbar region Category: Medical Plan In my opinion this patient is suffering from spondylosis of the lumbar spine mostly on the right side. She was diagnosed with hepatitis-C in the past, chronic hepatitis C possibly may result in multiple areas arthritis. I will schedule her for L1- L2-L3 L4 medial branch block on the right. If this procedure will result in significant more than 6 hours pain relief I will schedule her for therapeutic modality including sprint PNS versus RFA of the above noted medial branches. Patient Instructions: I here by testify that I spent 45 minutes in conversation with this patient as well as evaluating her prior records and diagnostic studies as well as planning her care and organizing this note. Coding Level of Care Code New Pt Level 4 (17667) Diagnoses Chronic pain syndrome G89.4 Spondylosis of lumbar region without myelopathy or radiculopathy M47.816
[2024-02-29 11:42] VITALS: BP 122/76; PULSE 102; RESP 16; O2SAT 98; BMI 34.9
== END 2024-02-29 11:58 | disposition home or self-care (01) ==
PROVIDERS: PCP Physician Assistant; Visit Provider Registered Nurse Emergency
DX: G89.4 Chronic pain syndrome (principal); M47.816 Spondylosis without myelopathy or radiculopathy, lumbar region
CPT/HCPCS: 99204

== ENCOUNTER → 2024-02-29 11:32 | Outpatient (BNVA) | payer OTHER, SELFPAY | PROVIDERS: PCP Physician Assistant; Visit Provider Registered Nurse Emergency | DX: M47.816 Spondylosis without myelopathy or radiculopathy, lumbar region (principal); G89.4 Chronic pain syndrome | CPT/HCPCS: 99202 ==

== ENCOUNTER 2024-04-29 06:07 | Outpatient (REF) | payer OTHER, SELFPAY | END 2024-04-29 06:08 | disposition home or self-care (01) | LOC: CF 06:07 | PROVIDERS: Visit Provider Anesthesiology | DX: M47.816 Spondylosis without myelopathy or radiculopathy, lumbar region (principal); G89.4 Chronic pain syndrome | CPT/HCPCS: 64493; 64494; J2003; J2795; Q9967 ==

== ENCOUNTER 2024-04-29 08:35 | Outpatient (AMB) | payer OTHER, SELFPAY ==
--- NOTE | 2024-04-29 10:26 | A.OFFVIS_ITS ---
Vital Signs 04/29/24 11:13 04/29/24 11:14 04/29/24 11:14 Height 5 ft 11 in 5 ft 11 in Weight 250 lb 250 lb BMI 34.9 34.9 BP 131/82 150/86 H 136/82 Blood Pressure Location Lt brachial Lt brachial Lt brachial Position Sitting Sitting Sitting Respiration 18 18 Pulse 89 95 Pulse Source Pulse Oximeter Pulse Oximeter Pulse Oximetry (%) 99 99 Oxygen Delivery Method Room Air Room Air Comment pre-op post-op Intake Visit Reasons: RIGHT DIAGNOSTIC L2, L3, L4, DRL5 MBB Allergies seasonal Allergy (Unknown, Uncoded 02/07/24 08:56) unknown [facility] Medical History Polysubstance abuse Endocarditis DMII (diabetes mellitus, type 2) History of renal dialysis Surgical History History of wisdom tooth extraction Family History Maternal Grandmother Diabetes Other Mental health disorder Substance use disorder Social History Housing: House Alcohol intake: current Alcohol intake frequency: holidays/special occasions only Patient Tobacco Use Status: Current everyday Tobacco user Tobacco use type: Cigarette Cigarette Packs Per Day: 0.5 Cigarettes Per Day: 8 e-Cigarette/Vaping Use: Never Used Second Hand Smoke Exposure: Yes Substance Use Type: Crack/Cocaine, IV Drugs and Opiates service: No Current occupational status: unemployed Gender identity: Female Cognitive needs: No Hearing needs: No Vision needs: Yes (Glasses) Female Reproductive History Menstrual Age of Menarche: 7 Physical Exam Vital Signs: Last Vital Signs Pulse 95 04/29/24 11:14 Resp 18 04/29/24 11:14 BP 136/82 04/29/24 11:14 Pulse Ox 99 04/29/24 11:14 Oxygen Delivery Method Room Air 04/29/24 11:14 BMI result Body Mass Index 34.9 Assessment & Plan Assessment & Plan (1) Chronic pain syndrome: Code(s): G89.4 - Chronic pain syndrome Category: Medical (2) Spondylosis of lumbar region without myelopathy or radiculopathy: Code(s): M47.816 - Spondylosis without myelopathy or radiculopathy, lumbar region Category: Medical Plan: Diagnostic medial branch block L2, L3,L4 dorsal ramus L5 On the right ? ?Informed consent was explained to the patient. All questions were explained and? answered.? The patient was taken inside the operating room where she was positioned prone on the operating table. Time-out was performed delineating correct site, side, the nature of the procedure, patient's allergy, . All operating room staff was participating in OR time-out procedure. ? ? The lower back was prepped with ChloraPrep and draped with sterile towels.? C- arm was brought over the operating field and sq picture of L4-, L5 vertebra and S1 AREA were delineated on the screen.? Point of interest were delineated as confluence of superior articular process of L3, L4 and L5 vertebra on the rightwith corresponding transverse processes as well as confluence of the sacral alae on the right with superior articular process of S1.? The projection of the point of interest to the skin were injected with the small amount of local anesthetic lidocaine 2% mixed with ropivacaine 0.5% 1-1 approcimately 1 cc.? After that 22 gauge 3.5 inch spinal needle was driven sequentially to the points of interest in tunnel vision fashion. After needles gently contacted the bone at the point of interests the needle was injected with small amount of the contrast.? The injection of the contrast did not demonstrate any intravascular or intrathecal spread of the contrast.? After that injection of the? ropivacaine 0.5%-1cc was performed at each needle location.??after that the needles were removed and Bandaids were applied. ? Upon completion of the injections? needle was? removed and sterile Band-Aids were applied.? The patient tolerated procedure very well. Plan In my opinion this patient is suffering from spondylosis of the lumbar spine mostly on the right side. She was diagnosed with hepatitis-C in the past, chronic hepatitis C possibly may result in multiple areas arthritis. I will schedule her for L1- L2-L3 L4 medial branch block on the right. If this procedure will result in significant more than 6 hours pain relief I will schedule her for therapeutic modality including sprint PNS versus RFA of the above noted medial branches. Orders: Orders FL guidance in treatment room Today M47.816 - Spondylosis without myelopathy or radiculopathy, lumbar region Coding Level of Care Code Procedure Only Diagnoses Chronic pain syndrome G89.4 Spondylosis of lumbar region without myelopathy or radiculopathy M47.816
[2024-04-29 11:13] VITALS: BP 131/82; PULSE 89; RESP 18; O2SAT 99; BMI 34.9
[2024-04-29 11:14] VITALS: BP 136/82; BP 150/86; PULSE 95; RESP 18; O2SAT 99; BMI 34.9
== END 2024-04-29 10:41 | disposition home or self-care (01) ==
LOC: HO.PMCPRC 08:35
PROVIDERS: PCP Physician Assistant; Visit Provider Anesthesiology
DX: M47.816 Spondylosis without myelopathy or radiculopathy, lumbar region (principal); G89.4 Chronic pain syndrome
CPT/HCPCS: 64493; 64494

== ENCOUNTER 2024-05-08 10:48 | Outpatient (AMB) | payer OTHER, SELFPAY ==
--- NOTE | 2024-05-08 10:49 | MHC.OFFVIS ---
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 She reported absence of pain for the 1st 6 hours after the procedure. She stated today: ?I felt some skin irritation and for that sensation I put 1-2/10 on my pain diary however the chronic pain I had before the procedure was all gone . 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 We discussed radiofrequency ablation as well as sprint PNS treatment. I think considering her lifestyle and occupation she would benefit from sprint PNS as more physiological way of treatment. We usually reserve radiofrequency ablation Apra for the cases of the patients were heavy lifting torso twisting torso turning is involved. Prior: is very pleasant 28 years old female who presents today in my office with complains on pain in the center of the lumbar lower back. She reports that her pain is mostly on the right. The pain started 2 years ago she always was told that her pain is secondary to some muscle problems however she tried physical therapy and it did not relieve her pain at all. She does not relate her pain to any events. She had images of the thoracic spine which were unremarkable there is no history of lumbar spine images, however when I examined the patient's abdominal x-ray they were possibility of enlarged arthritis in the upper lumbar spine. She had extensive course of physical therapy to help her pain she reports that even with home exercise program she does not get any improvement. She never had any injections in her back. Her past medical history significant for multiple problems. 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 She suffer from headaches she has diabetes and she has hepatitis C. She also suffer from ovarian cyst. She never had any surgeries before. She went to the rehab for her addiction and was on the Suboxone treatment for 2 years. Her last Suboxone was 5 years ago. She smokes 1 pack per cigarettes a day. She drinks socially alcohol she drinks caffeinated beverages and she admits in the past recreational drugs. She denies current recreational drugs problems. [facility] Medical History Polysubstance abuse Endocarditis DMII (diabetes mellitus, type 2) History of renal dialysis Surgical History History of wisdom tooth extraction Family History Maternal Grandmother Diabetes Other Mental health disorder Substance use disorder Social History Housing: House Alcohol intake: current Alcohol intake frequency: holidays/special occasions only Patient Tobacco Use Status: Current everyday Tobacco user Tobacco use type: Cigarette Cigarette Packs Per Day: 0.5 Cigarettes Per Day: 8 e-Cigarette/Vaping Use: Never Used Second Hand Smoke Exposure: Yes Substance Use Type: Crack/Cocaine, IV Drugs and Opiates service: No Current occupational status: unemployed Gender identity: Female Cognitive needs: No Hearing needs: No Vision needs: Yes (Glasses) Female Reproductive History Menstrual Age of Menarche: 7 Review of Systems Const All systems reviewed & are unremarkable except as noted in HPI and below ENT Reports Normal hearing present Neuro Reports Normal hearing present, Denies Abnormal speech present and Denies Sensory deficit (Neuro) Physical Exam Vital Signs: Last Vital Signs Pulse 123 H 05/08/24 11:15 BP 141/88 H 05/08/24 11:15 Pulse Ox 97 05/08/24 11:15 Oxygen Delivery Method Room Air 05/08/24 11:15 BMI result Body Mass Index 34.2 Const General: no acute distress Nutritional Appearance: well nourished and obese (Trivial obesity) Orientation/consciousness: patient oriented x3 Eyes General: appearance normal, both eyes and all related structures Pupils: Equal, round and reactive pupils present EOM: EOMs intact bilaterally Neck Neck: Yes full ROM Chest Chest palpation & inspection: normal inspection of the chest Resp Effort & Inspection: normal respiratory effort, able to speak in complete sentences, normal respiratory pattern, no audible wheezes and no cough Cardio Jugular venous distension: no JVD GI Inspection: Yes normal to inspection Back/Spine/Pelvis Other: She is able to stand on bilateral tiptoes and on bilateral heels without any difficulty. She is able to lift the great toe in separation from the rest of the toes from the ground bilaterally. This demonstrates normal function of L4-5 and S1 lumbar vertebra. SLR is negative bilaterally. Nathan test is negative bilaterally. Tenderness on palpation in paraspinal regions on the right of the lumbar spine. No tenderness on palpation midline no tenderness on palpation on the left. Loading test is positive on the right. Negative on the left. Valsalva maneuver is negative for pain increase. Neuro General: patient oriented x3 and gait normal Cranial nerves: Yes CN's II-XII intact bilaterally, Yes Equal, round and reactive pupils present, Yes Normal hearing present and Yes Ability to bilaterally elevate shoulders present Speech: No Abnormal speech present Gait exam (Neuro): Normal gait present Motor exam (neuro): 5/5 motor strength present throughout Sensory Exam: No Sensory deficit (Neuro) Extrem General: No pedal edema Psych Speech and movement: Normal speech and movement present Affect: normal affect Attitude: cooperative Thought process: Normal thought process present Thought content: Normal thought content present Insight: Good insight present (Psych) Judgement: Good judgement present (Psych) Assessment & Plan Assessment & Plan (1) Chronic pain syndrome: Code(s): G89.4 - Chronic pain syndrome Category: Medical (2) Spondylosis of lumbar region without myelopathy or radiculopathy: Code(s): M47.816 - Spondylosis without myelopathy or radiculopathy, lumbar region Category: Medical Plan Very good results of diagnostic medial branch block I will schedule patient for L4 possible L3 possible L5 sprint PNS. Risks and benefits were briefly explained today to the patient. Patient agreed to go for the procedure. I will see the patient after the procedure in the office she will continue to follow-up with us while wearing the device. Coding Level of Care Code Est Pt Level 3 (84417) Diagnoses Chronic pain syndrome G89.4 Spondylosis of lumbar region without myelopathy or radiculopathy M47.816
[2024-05-08 11:15] VITALS: BP 141/88; PULSE 123; O2SAT 97; BMI 34.2
--- OUTSIDE RECORDS SUMMARY | 2024-05-14 01:45 | XMS_ITS | Data Portability ---
Author Organization MD - [facility] Address [address] [place] [address] Assessment No assessment recorded. Plan of Treatment Reminders Order Date Submit Date Provider Last Modified By Organization Details Last Modified Time Details Appointments None record ed. Lab None record ed. Referral None record ed. Procedures None record ed. Surgeries None record ed. Imaging None record ed. Medication Orders None record ed. Patient TargetsNo targets recorded. Patient InstructionsNo instructions recorded. Reason for Referral None Reported. Medical Equipment None Reported. Medications Name Sig Start Date Stop Date Status Note LastModified by Organization Details LastModified Time ondansetron 8 mg disintegrating tablet active Not Available Not Available Not Available dicyclomine 20 mg tablet active Not Available Not Available No t Available promethazine 25 mg tablet active Not Available Not Available No t Available lorazepam 1 mg tablet active Not Available Not Available Not Available Narcan 4 mg/actuation nasal spray active Not Available Not Available Not Available Vitals None Recorded Social History None recorded. Functional Status None recorded. Mental Status None recorded. Family History Nothing Reported. Medical History No medical history recorded. Gynecological HistoryNo gynecological history recorded. Obstetrics History GPAL:G 0 P 0 0 0 0 Past Encounters Encounter ID Performer Location Encounter Start Date Encounter Closed Date Diagnosis/Indication Diagnosis SNOMED-CT Code Diagnosis ICD10 Code [id number] [address] [address] 02/27/2018 07:48:13 02/27/2018 07:48:41 Health Concerns Section Related Observation LastModified by Organization Detai ls LastModified Time None Recorded Concern Status LastModified by Organization Details LastModified Time None Recorded Advance Directives Directive None Recorded Payers Encounter Date Sequence Insurance Name Policy Number Policy Mccracken Covered Member ID Mccracken Member ID Guarantor Name 02/20/2018 1 [place] [employer] Anastasia Baxter [id number] Anastasia Baxter 02/20/2018 2 [place] Anastasia Baxter [id number] Anastasia Baxter OBGyn Episode No OBEpisode recorded.
--- OUTSIDE RECORDS SUMMARY | 2024-05-14 01:45 | XMS_ITS | Data Portability ---
Author Organization [facility], [address] Address [address] [place] [address] Assessment No assessment recorded. Plan of Treatment [...] Referral None Reported. Medical Equipment None Reported. Vitals None Recorded Social History None recorded. Functional Status None recorded. Mental Status None recorded. Family History Nothing Reported. Medical History No medical history recorded. Gynecological HistoryNo gynecological history recorded. Obstetrics History GPAL:G 0 P 0 0 0 0 Past Encounters Encounter ID Performer Location Encounter Start Date Encounter Closed Date Diagnosis/Indication Diagnosis SNOMED-CT Code Diagnosis ICD10 Code [id number] [address] [place] [address] 07/25/2019 16:03:53 07/25/2019 16:30:33 [id number] [address] [place] [address] 12/04/2015 14:35:15 12/04/2015 15:21:05 [id number] [address] [place] [address] 11/09/2016 15:40:07 11/09/2016 16:39:36 [id number] [address] [place] [address] 09/30/2020 17:01:45 09/30/2020 18:42:55 [id number] [address] [place] [address] 10/30/2016 16:43:15 10/30/2016 17:14:14 Health Concerns Section Related Observation LastModified by Organization Detai ls LastModified Time None Recorded Concern Status LastModified by Organization Details LastModified Time None Recorded Advance Directives Directive None Recorded Payers Encounter Date Sequence Insurance Name Policy Number Policy Mccracken Covered Member ID Mccracken Member ID Guarantor Name 12/04/2015 2 [place] Anastasia Baxter [id number] Anastasia Baxter 10/30/2016 2 [place] Anastasia Baxter [id number] Anastasia Baxter 11/09/2016 2 [place] Anastasia Baxter [id number] Anastasia Baxter 07/25/2019 2 [place] Anastasia Baxter [id number] Anastasia Baxter 09/30/2020 2 [place] Anastasia Baxter [id number] Anastasia Baxter OBGyn Episode No OBEpisode recorded.
== END 2024-05-08 11:05 | disposition home or self-care (01) ==
PROVIDERS: PCP Physician Assistant; Visit Provider Anesthesiology
DX: G89.4 Chronic pain syndrome (principal); M47.816 Spondylosis without myelopathy or radiculopathy, lumbar region
CPT/HCPCS: 99213

== ENCOUNTER → 2024-05-08 10:48 | Outpatient (BNVA) | payer OTHER, SELFPAY | PROVIDERS: PCP Physician Assistant; Visit Provider Anesthesiology | DX: M47.816 Spondylosis without myelopathy or radiculopathy, lumbar region (principal); G89.4 Chronic pain syndrome | CPT/HCPCS: 99212 ==

== ENCOUNTER 2024-05-13 09:08 | Outpatient (AMB) | payer OTHER, SELFPAY ==
[2024-05-13 09:14] VITALS: BP 110/80; PULSE 110; O2SAT 98; BMI 34.4
--- NOTE | 2024-05-13 09:14 | A.OFFPC_ITS ---
Vital Signs 05/13/24 09:14 Height 5 ft 11 in Weight 247 lb BMI 34.4 BP 110/80 Blood Pressure Location Lt brachial Position Sitting Pulse 110 H Pulse Source Pulse Oximeter Pulse Oximetry (%) 98 Oxygen Delivery Method Room Air Intake Visit Reasons: Annual Exam Intake Note: Patient is here today for a physical. 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 ?Patient has a past medical history significant for opiate dependence, smoker ,history of endocarditis, type 2 diabetes. Thoracic spine pain: Has followed up with [place] pain management and received an injection that gave her temporary relief though her pain has come back. She is considering other alternatives for her pain relief. ADD: She reports having a diagnosis of ADHD as a child and was treated with many different medications. She is now on Strattera 100 mg which seems to be helpful. She is now seeing a mental therapist and a psychiatrist .. Class 1 obesity: The patient's weight is documented at 247 pounds, with a history of fluctuations previously higher at 298 pounds. She is motivated to lose weight and has expressed interest in increasing her Ozempic dosage for better glycemic and weight management. She reports recent strict dietary efforts and increasing physical activity despite feelings of exhaustion. Recent lab results show an A1c of 5.2, indicating good diabetes control. .? Type 2 diabetes:? Was on metformin in the past which did control her diabetes. Continues on Ozempic 0.5 mg weekly. She is interested in higher dose of Ozempic for added benefit of weight loss as she has been having a difficult time losing weight. PLAN: We plan to increase her Ozempic to 1 mg weekly for added weight loss. .. Opiate dependence (in remission):? She has completely weaned off Suboxone . Now been sober from street opiates over the last 6 years?. 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 Vaccines: Up-to-date with tetanus and pneumonia vaccine, declines COVID vaccine [facility] Medical History (Updated 05/14/24 @ 07:34 by Ramy Jackson PA-C) Hepatitis C Polysubstance abuse Endocarditis DMII (diabetes mellitus, type 2) History of renal dialysis Surgical History History of wisdom tooth extraction Family History Maternal Grandmother Diabetes Other Mental health disorder Substance use disorder Social History (Updated 05/13/24 @ 09:37 by Ramy Jackson PA-C) Housing: House Alcohol intake: current Alcohol intake frequency: holidays/special occasions only Patient Tobacco Use Status: Current everyday Tobacco user Tobacco use type: Cigarette Cigarette Packs Per Day: 0.5 Cigarettes Per Day: 5 e-Cigarette/Vaping Use: Never Used Second Hand Smoke Exposure: Yes Substance Use Type: Crack/Cocaine, IV Drugs and Opiates service: No Current occupational status: employed Current occupation: [employer] Gender identity: Female Cognitive needs: No Hearing needs: No Vision needs: Yes (Glasses) Female Reproductive History Menstrual Age of Menarche: 7 Questionnaire PHQ-9 Over the last 2 weeks, how often have you been bothered by any of the following problems? 1. Little interest or pleasure in doing things: more than half the days 2. Feeling down, depressed, or hopeless: more than half the days 3. Trouble falling or staying asleep, or sleeping too much: more than half the days 4. Feeling tired or having little energy: nearly every day 5. Poor appetite or overeating: nearly every day 6. Feeling bad about yourself - or that you are a failure or have let yourself or your family down: several days 7. Trouble concentrating on things, such as reading the newspaper or watching television: more than half the days 8. Moving or speaking so slowly that other people could have noticed. Or the opposite - being so fidgety or restless that you have been moving around a lot more than usual: not at all 9. Thoughts that you would be better off or of hurting yourself in some way: not at all Total score: 15 Depression Screening Interpretation: Positive Depression Screening Follow-up: Existing condition and In treatment Depression Screening Done: Yes 55797 - PHQ-9 Billing: Yes Source: Developed by Drs. Rubens Fine, Akiko Simmons, Anastacio Singh and colleagues, with an educational rachel from [employer]. Thrive Questionnaire Date Thrive assessed: 05/13/24 I am a: Patient What is your living situation today?: I have a steady place to live Within the past 12 months, did the food you bought not last and you didn't have the money to get more?: I choose not to answer this question Within the past 12 months, did you worry whether your food would run out before you got money to buy more?: I choose not to answer this question Do you have trouble paying for medicines?: No Do you have trouble getting transportation to medical appointments?: No Do you have trouble paying your heating and electricity bill?: No Do you have trouble taking care of your child, family member or friend?: No Do you have trouble with day-to-day activities such as bathing, preparing meals, shopping, managing finances, etc.?: No Are you currently unemployed and looking for a job?: No Are you interested in more education?: Yes Please select the resources that you would like help with: None Currently or been in a relationship where the following occur: I choose not to answer THRIVE Score: 0 AUDIT C Alcohol Use Questionnaire (AUDIT-C) 1. How often do you have a drink containing alcohol?: 2-4 times a month 2. How many drinks containing alcohol do you have on a typical day when you are drinking?: 3 or 4 3. How often do you have six or more drinks on one occasion?: Less than monthly Total Score: 4 VALDEZ-7 AMB Questionnaire VALDEZ-7 Date VALDEZ - 7 assessed: 05/13/24 Feeling nervous, anxious, or on edge: 3 = Nearly every day Not being able to stop or control worryin = More than half the days Worrying too much about different things: 2 = More than half the days Trouble relaxin = Nearly every day Being so restless that it is hard to sit still: 2 = More than half the days Becoming easily annoyed or irritable: 3 = Nearly every day Feeling afraid as if something awful might happen: 2 = More than half the days Total VALDEZ-7 score (0-4 normal; 5-9 mild; 10-14 moderate; 15-21 severe): 17 Source: Developed by Drs. Rubens Fine, Akiko Simmons, Anastacio Singh and colleagues, with an educational rachel from [employer]. VALDEZ-7 Assessment Billing VALDEZ-7 Assessment Tool: VALDEZ-7 Assessment 65466 Review of Systems Const Denies body aches, Denies chills, Denies excessive sweating, Denies fatigue, Denies fever(s) and Denies headache(s) Eyes Denies blurry vision ENT Denies dysphagia, Denies vertigo, Denies dizziness, Denies headache(s), Denies hearing loss and Denies tinnitus Card Denies chest pain, Denies chest pain with activity, Denies syncope, Denies irregular heart rhythm and Denies dyspnea Resp Denies chest congestion, Denies cough, Denies hemoptysis, Denies dyspnea and Denies wheezing GI Denies abdominal pain, Denies melena, Denies hematochezia, Denies coffee ground emesis, Denies dysphagia, Denies diarrhea, Denies nausea and Denies vomiting Denies urinary frequency, Denies dysuria, Denies urinary hesitancy and Denies urinary urgency Musc Denies arthralgias, Denies limited range of motion, Denies muscle cramps and Denies muscle weakness Skin/Breast Denies rash and Denies skin ulcer Neuro Denies Abnormal speech present, Denies confusion, Denies vertigo, Denies dizziness, Denies syncope, Denies headache(s), Denies memory loss and Denies seizure-like activity Psych Denies anxiety, Denies confusion, Denies depression, Denies memory loss, Denies panic attacks and Denies paranoia Endo Denies excessive sweating, Denies fatigue, Denies flushing, Denies polydipsia and Denies polyuria Aller/Immun Denies wheezing Physical exam (Primary Care) Vital Signs: Last Vital Signs Pulse 110 H 05/13/24 09:14 BP 110/80 05/13/24 09:14 Pulse Ox 98 05/13/24 09:14 Oxygen Delivery Method Room Air 05/13/24 09:14 BMI result Body Mass Index 34.4 BMI Assessment/Plan discussion: High BMI High, discussed plan: lifestyle, weight reduction, dietary and physical activity Tobacco/Smoking Status: Tobacco use Status Tobacco use date assessed 02/07/24 05/13/24 09:15 Patient Tobacco Use Status Current everyday Tobacco 05/13/24 09:37 Tobacco use type Cigarette 05/13/24 09:37 e-Cigarette/Vaping Use Never Used 05/13/24 09:37 Are you ready to quit: No Tobacco cessation counseling provided: Yes Items discussed: Nicotine replacement Relapse Prevention: discussed the importance of a supportive environment, discussed negative mood or depression after quitting, weight gain after smoking is common and discussed dietary, exercise and/or lifestyle changes Number of minutes spent counselin CPT code: 92011 - 4-10 Minutes PHQ-9: PHQ-9 Score PHQ-9: Total score 15 05/13/24 09:30 Depression Screening Interpretation: Positive Depression Screening Follow-up: Existing condition and In treatment Thrive Assessment: Date of Thrive Assessment Date Thrive assessed 05/13/24 05/13/24 09:15 Currently or been in a relationship where the following occur: I choose not to answer Const General: cooperative, comfortable, no acute distress, alert and awake; No confusion Orientation/consciousness: oriented to person, oriented to place, patient oriented x3 and No confusion HENMT Head: Yes normocephalic Ears: external ears normal and TM's normal bilaterally Face and sinus: No sinus tenderness Mouth: Normal oral and palatal mucosa present and tongue normal Teeth and gingiva: dentition normal and gingiva normal Throat: Yes posterior oropharynx normal, Yes tonsils normal and Yes uvula midline Eyes Conjunctivae: conjunctivae normal Sclerae: sclerae normal Pupils: Equal, round and reactive pupils present EOM: EOMs intact bilaterally Direct Ophthalmoscopy: No no photophobia Neck Neck: Yes no lymphadenopathy, No tender and Yes no JVD Thyroid: Thyroid normal Carotids: no bruits Chest Chest palpation & inspection: no tenderness Resp Effort & Inspection: normal respiratory effort, no audible wheezes, not labored and no stridor Auscultation: no crackles, no rales, no rhonchi and no wheezes Cardio Jugular venous distension: no JVD Rate: regular rate, not bradycardic and not tachycardic Rhythm: regular rhythm Bruits: no carotid bruits Peripheral pulses: Peripheral pulses 2+ throughout GI Inspection: Yes normal to inspection, No abdominal wall ecchymosis and No visible herniation Palpation (GI): Soft to palpation, nontender, no guarding, not rigid and No hepatosplenomegaly present Auscultation: normoactive bowel sounds General: Yes no CVA tenderness Back/Spine/Pelvis Back: no CVA tenderness and No back tenderness Cervical Spine: cervical ROM normal Thoracic/Lumbar Spine: thoracic and lumbar spine normal to inspection, straight leg raise negative bilaterally, No thoraco-lumbar ROM limited and No lumbar spinal tenderness Skin Lesions: no lesions Rashes: no rashes Wounds: no wounds Neuro General: oriented to person, oriented to place, patient oriented x3, CN's II-XI intact bilaterally and No confusion Cranial nerves: Yes Equal, round and reactive pupils present and Yes Normal accommodation reflex present Cognition (Neuro): normal cognition Speech: No Abnormal speech present Gait exam (Neuro): Normal gait present Motor exam (neuro): 5/5 motor strength present throughout Extrem Right upper extremity: full ROM; no cyanosis Left upper extremity: full ROM; no cyanosis Right lower extremity: no edema Left lower extremity: no edema Psych Appearance: grossly normal Mental Status: mental status grossly normal Affect: normal affect Attitude: cooperative Thought process: Normal thought process present Office Procedures Flu Questionnaire Does the patient have a severe egg allergy?: No Does the patient have severe life threatening allergies?: No Does the patient have a fever or illness today?: No Has the patient ever had Guillain-Ludlow Syndrome?: No Has the patient ever had any past reaction to a flu shot?: No Results AMB Hemoglobin A1c AMB Hemoglobin A1c 5.2 % Last Edit by LIV Hinojosa on 05/13/24 09:32 Immunizations Fluarix Triv [id number] (PF) 45 mcg (15 mcg x 3)/0.5 mL IM syringe Performing Provider: Ramy Jackson PA-C [facility] Administered by: LIV Hinojosa on 05/13/24 09:56 Dose Route Admin Location Dispensed Lot Number Expiration Date FORMERLY NAMED [facility] 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 0.5 mL IM Left Deltoid 0.5 mL [id number] 12/01/24 [id number] [employer] VIS Given Date VIS Provided VIS Publication Date 05/13/24 Single Vaccine 21 Eligibility Eligibility Date Funding Source Not [facility] Eligible 05/13/24 Private Results Reviewed Results Reviewed: Laboratory Last Values Hgb A1c (Clinic) 5.2 % (4.0-6.0) 05/13/24 09:13 Coding Level of Care Code Est Pt Prev Care 18-39y(40906) Diagnoses Annual physical exam Z00.00 Uncomplicated opioid dependence F11.20 Substance use status: uncomplicated Type 2 diabetes mellitus with hyperglycemia, without long-term current use of insulin E11.65 Diabetes mellitus complication status: with hyperglycemia Diabetes mellitus exterminator insulin use: without exterminator use MDD (major depressive disorder), recurrent episode, moderate F33.1 Spondylosis of lumbar region without myelopathy or radiculopathy M47.816 Attention deficit hyperactivity disorder (ADHD), predominantly hyperactive type F90.1 Attention deficit-hyperactivity disorder type: predominantly hyperactive VALDEZ (generalized anxiety disorder) F41.1 Class 1 obesity E66.811 Smoker F17.200 Additional Codes VALDEZ-7 Assessment Billing - VALDEZ-7 Assessment Tool: VALDEZ-7 Assessment [id number] ([id number]) PHQ-9 - 10148 - PHQ-9 Billing: Yes ([id number]) Vital Signs *Quality* - CPT code: 02204 - 4-10 Minutes ([id number]) Assessment & Plan Assessment & Plan (1) Annual physical exam: Code(s): Z00.00 - Encounter for general adult medical examination without abnormal findings Category: Medical Plan: As per HPI (2) Opiate dependence: Comment: States she has weaned off Suboxone and everything and is doing well. Code(s): F11.20 - Opioid dependence, uncomplicated Category: Medical Qualifiers: Substance use status: uncomplicated Qualified Code(s): F11.20 - Opioid dependence, uncomplicated Plan: Continues to stay sober from opiates. Continues to work in sobriety. She is off of Suboxone for quite some time now. (3) DMII (diabetes mellitus, type 2): Code(s): E11.9 - Type 2 diabetes mellitus without complications Category: Medical Qualifiers: Diabetes mellitus complication status: with hyperglycemia Diabetes mellitus skilled nursing insulin use: without exterminator use Qualified Code(s): E11.65 - Type 2 diabetes mellitus with hyperglycemia Plan: Patient's type 2 diabetes well controlled with A1c today at 5.2. Will increase her Ozempic dose to mg weekly for added benefit of more weight loss. A1c goal is to remain below 6.5 (4) MDD (major depressive disorder), recurrent episode, moderate: Code(s): F33.1 - Major depressive disorder, recurrent, moderate Category: Medical Plan: Patient's PHQ-9 score positive for depression which has been existing condition for her.. Patient's seems to be in a slight depressive mood as of late she relates this to her stressful work environment. Not interested in starting any new mental health medications at this time. She feels she is able to use nonpharmacological techniques to get her mood better. (5) Spondylosis of lumbar region without myelopathy or radiculopathy: Code(s): M47.816 - Spondylosis without myelopathy or radiculopathy, lumbar region Category: Medical Plan: Patient followed by [facility] pain management. Has tried an injection though and gave her temporary relief. Patient not interested in any pain medication at this time. She considering other pain reduction modalities. (6) ADHD (attention deficit hyperactivity disorder): Code(s): F90.9 - Attention-deficit hyperactivity disorder, unspecified type Category: Medical Qualifiers: Attention deficit-hyperactivity disorder type: predominantly hyperactive Qualified Code(s): F90.1 - Attention-deficit hyperactivity disorder, predominantly hyperactive type Plan: Continues on Strattera with good effect on her attention and focus. She continues to work a full-time job (7) VALDEZ (generalized anxiety disorder): Code(s): F41.1 - Generalized anxiety disorder Category: Medical Plan: Patient's VALDEZ-7 score positive for anxiety which has been existing condition for her and she does speak with a mental health therapist (8) Class 1 obesity: Code(s): E66.811 - Obesity, class 1 Category: Medical Plan: Patient does understand her BMI is 34 and will work on being more physically active and adapt to better eating habits to reduce her weight (9) Smoker: Code(s): F17.200 - Nicotine dependence, unspecified, uncomplicated Category: Social Hx Plan: Patient does understand she needs to quit smoking completely and has found it difficult to do so due to stress in her life. He has cut down some though still continues to smoke depending on her stress level. She is not interested in any nicotine replacement therapy. Orders: Orders Influenza [id number] Immunization 05/13/24 Z23 - Encounter for immunization AMB Hemoglobin A1c 05/13/24 E11.65 - Type 2 diabetes mellitus with hyperglycemia Syphilis Screen 05/13/24 E11.65 - Type 2 diabetes mellitus with hyperglycemia, Z11.3 - Encounter for screening for infections with a predominantly sexual mode of transmission HIV Ab/Ag 05/13/24 E11.65 - Type 2 diabetes mellitus with hyperglycemia, Z11.3 - Encounter for screening for infections with a predominantly sexual mode of transmission CT NG by PCR 05/13/24 E11.65 - Type 2 diabetes mellitus with hyperglycemia, Z20.2 - Contact with and (suspected) exposure to infections with a predominantly sexual mode of transmission Herpes Simplex Virus Ab IgG 05/13/24 Z11.3 - Encounter for screening for infections with a predominantly sexual mode of transmission Medications: New semaglutide (Ozempic) 1 mg (0.75 mL) subcut QWEEK 3 mL 3RF 4 weeks E11.65 - Type 2 diabetes mellitus with hyperglycemia cholecalciferol (vitamin D3) 50 mcg PO DAILY 90 caps 1RF 90 days E11.65 - Type 2 diabetes mellitus with hyperglycemia, E55.9 - Vitamin D deficiency, unspecified Discontinued semaglutide (Ozempic) Discontinued Reason: Doctor's Order 0.5 mg (0.736 mL) subcut QWEEK 4 weeks 3 mL 3RF E11.65 - Type 2 diabetes mellitus with hyperglycemia
== END 2024-05-13 09:58 | disposition home or self-care (01) ==
PROVIDERS: PCP Physician Assistant; Visit Provider Physician Assistant
DX: Z23 Encounter for immunization (principal); E11.65 Type 2 diabetes mellitus with hyperglycemia

== ENCOUNTER 2024-05-13 09:08 | Outpatient (REF) | payer OTHER, SELFPAY ==
[2024-05-13 11:18] LABS: Hematocrit 38.1 % (37.0-47.0); Hemoglobin 12.2 g/dl (12.0-16.0); Mean Corpuscular Hemoglobin 27.7 pg (27.0-33.0); Mean Corpuscular Volume 86.6 fL (80.0-98.0); Mean Platelet Volume 9.3 fL (9.4-12.3); Platelet Count 309 X10*3/uL (160-400); Red Cell Distribution Width 12.6 % (11.0-16.0); White Blood Count 6.8 X10*3/uL (4.8-10.8)
[2024-05-13 12:09] LABS: Syphilis Screen Nonreactive (Nonreactive)
[2024-05-13 12:10] LABS: HIV AB/AG Nonreactive (Nonreactive); HIV Num 1 0.07 S/CO (0.00-0.99)
[2024-05-13 13:50] LABS: CT PCR NOT DETECTED (Not Detect.); NG PCR NOT DETECTED (Not Detect.)
[2024-05-14 19:13] LABS: Herpes Simplex Type 1 IgG <0.90 index
== END 2024-05-13 09:09 | disposition home or self-care (01) ==
LOC: HO.LAB 09:08
PROVIDERS: PCP Physician Assistant; Visit Provider Physician Assistant
DX: Z00.00 Encounter for general adult medical examination without abnormal findings (principal); Z23 Encounter for immunization; F11.20 Opioid dependence, uncomplicated; E11.65 Type 2 diabetes mellitus with hyperglycemia; F33.1 Major depressive disorder, recurrent, moderate; M47.816 Spondylosis without myelopathy or radiculopathy, lumbar region; F90.1 Attention-deficit hyperactivity disorder, predominantly hyperactive type; F41.1 Generalized anxiety disorder; E66.811 Obesity, class 1; F17.200 Nicotine dependence, unspecified, uncomplicated; Z20.2 Contact with and (suspected) exposure to infections with a predominantly sexual mode of transmission
CPT/HCPCS: 83036; 85027; 86695; 86696; 86780; 87389; 87491; 87591; 90471; 90656; 96127

== ENCOUNTER 2024-07-18 10:32 | Outpatient (AMB) | payer OTHER, SELFPAY ==
[2024-07-18 10:47] VITALS: BP 122/78; PULSE 106; O2SAT 98; BMI 32.6
--- NOTE | 2024-07-18 10:47 | MHC.OFFWIV ---
Intake Vital Signs 07/18/24 10:47 Height 5 ft 11 in Weight 234 lb BMI 32.6 BP 122/78 Blood Pressure Location Lt brachial Position Sitting Pulse 106 H Pulse Source Pulse Oximeter Pulse Oximetry (%) 98 Oxygen Delivery Method Room Air Intake Visit Reasons: EP-?bladder infection Intake Note: Patient here for pressure in lower abd and uncomfortable that started last weekend. Patient Tobacco Use Status: Current everyday Tobacco user Allergies seasonal Allergy (Unknown, Uncoded 07/18/24 10:54) unknown Do you need a note to return to daycare/school/sports/work: No HPI HPI Comments History of Present Illness Details History of Present Illness - The patient is a 29-year-old female presenting with urinary symptoms and discomfort following recent vaginal douche and sexual intercourse. - States onset of symptoms at the end of recent menstrual cycle with light spotting, leading to the use of 2 vaginal douches for alleviation. - Engaged in sexual intercourse subsequently, worsening bladder discomfort and pressure sensations. - Denies burning sensation during urination, fever, or urinary discharge; vigilant about changes in vaginal discharge, noting no variations. - Expresses concern over possible cervix trauma following resumption of sexual activity after hiatus. - Has no history of blood in urine, fever, or kidney stones; persistent symptoms prompting visit to assess possible urinary tract infection. Physical Exam General: Cooperative, healthy appearing, comfortable, no acute distress and well developed Orientation: Patient oriented x3 Limitations: No limitations Head: Normal to inspection Ears: Hearing grossly normal bilaterally Nose: Normal external nose present Face and sinus: Normal facial exam Eyes: Appearance normal, both eyes and all related structures Neck: Normal visual inspection and Yes full ROM Respiratory: Normal respiratory effort and able to speak in complete sentences Skin: No rashes or lesions noted Neuro: Patient oriented x3 Extremities: Normal to inspection [facility] Medical History (Updated 07/18/24 @ 11:11 by Mary Jo Kwon PA-C) Hepatitis C Polysubstance abuse Endocarditis DMII (diabetes mellitus, type 2) History of renal dialysis Surgical History History of wisdom tooth extraction Family History Maternal Grandmother Diabetes Other Mental health disorder Substance use disorder Social History (Updated 05/13/24 @ 09:37 by Ramy Jackson PA-C) Housing: House Alcohol intake: current Alcohol intake frequency: holidays/special occasions only Patient Tobacco Use Status: Current everyday Tobacco user Tobacco use type: Cigarette Cigarette Packs Per Day: 0.5 Cigarettes Per Day: 5 e-Cigarette/Vaping Use: Never Used Second Hand Smoke Exposure: Yes Substance Use Type: Crack/Cocaine, IV Drugs and Opiates service: No Current occupational status: employed Current occupation: [employer] Gender identity: Female Cognitive needs: No Hearing needs: No Vision needs: Yes (Glasses) Female Reproductive History Menstrual Age of Menarche: 7 Review of Systems Const All systems reviewed & are unremarkable except as noted in HPI and below Physical Exam Vital Signs: Last Vital Signs Pulse 106 H 07/18/24 10:47 BP 122/78 07/18/24 10:47 Pulse Ox 98 07/18/24 10:47 Oxygen Delivery Method Room Air 07/18/24 10:47 BMI result Body Mass Index 32.6 Results AMB Urinalysis, Automated UA Leukoctes 0 Ysabel/uL Last Edit by LIV Le on 07/18/24 11:16 UA Nitrite Negative Last Edit by LIV Le on 07/18/24 11:16 UA Urobilinogen 0.2 mg/dL Last Edit by LIV Le on 07/18/24 11:16 UA Protein 15 mg/dL Last Edit by Susan Ken CCM on 07/18/24 11:16 UA pH 6.0 Last Edit by LIV Le on 07/18/24 11:16 UA Blood 0 Elvin/uL Last Edit by Susan Ken CCM on 07/18/24 11:16 UA Specific [place] 1.030 Last Edit by LIV Le on 07/18/24 11:16 UA Ketone Negative Last Edit by LIV Le on 07/18/24 11:16 UA Bilirubin 0 mg/dL Last Edit by LIV Le on 07/18/24 11:16 UA Glucose 0 mg/dL Last Edit by Susan Ken CCM on 07/18/24 11:16 Assessment & Plan Assessment & Plan (1) Sensation of pressure in bladder area: Code(s): R39.89 - Other symptoms and signs involving the genitourinary system Plan: UA negative for leuks and nitrites and blood. Will treat for UTI based on symptoms as it is the weekend, to prevent an ED visit and from it getting worse. Evaluation of symptoms aligns with a suspected urinary tract infection, with supporting strategies including a pending urine culture for diagnostic confirmation. Consideration is also given to potential cervix trauma due to post-intercourse discomfort. Cease douching and encourage pelvic rest, along with increased hydration to promote urinary tract health. Treatments will be adjusted based on urine test results and clinical observations. Also sent Bacterial Vaginosis panel and CT/NG to be thorough. Patient was informed and verbally consented to the use of an ambient scribe for clinic note documentation during this visit. Orders: Orders AMB Urinalysis Automated Today Z13.9 - Encounter for screening, unspecified Urine Culture Today N39.0 - Urinary tract infection, site not specified Bacterial Vaginosis Panel Today R39.89 - Other symptoms and signs involving the genitourinary system CT NG by PCR Today R30.0 - Dysuria, R39.89 - Other symptoms and signs involving the genitourinary system Medications: New cefuroxime axetil 500 mg PO Q12H 10 tabs 0RF Coding Level of Care Code Est Pt Level 4 (77531) Diagnoses Sensation of pressure in bladder area R39.89
--- OUTSIDE RECORDS SUMMARY | 2024-07-18 11:21 | XMS_ITS | Encounter Summary ---
Author Organization [facility] Address [address] [place] [address] Care Team Providers Care Insurance Specialist Name Role Phone Beba Will MD Primary Care Provider [phone] [facility], Pcp Primary Care Provider Unavailabl e Encounter Details Date Type Department Care Team Description 01/19/2018 Hospital Medical Records [address] [place] [address] Social History Tobacco Use Types Packs/Day Years Used Date Smoking Tobacco: Every Day Sex Assigned at Date Recorded Not on file documented as of this encounter Plan of Treatment Not on file documented as of this encounter Visit Diagnoses Not on filedocumented in this encounter Care Teams Insurance Specialist Relationship Specialty Start Date End Date Beba Will MD [address] [place] [address] PCP - General Internal Medicine 07/20/16 01/22/19 [facility], Pcp [address] [place], [place] [id number] PCP - General Internal Medicine 01/23/19 documented as of this encounter
--- OUTSIDE RECORDS SUMMARY | 2024-07-18 11:21 | XMS_ITS | Encounter Summary ---
Author Organization [facility] Address [address] [place] [address] Care Team Providers Care Physicians Assistant Name Role Phone Beba Will MD Primary Care Provider [phone] [facility]cp [facility] Encounter Details Date Type Department Care Team Description 02/13/2018 Hospital Medical Records [address] [place] [address] Leonardo Louie MD Social History Tobacco Use Types Packs/Day Years Used Date Smoking Tobacco: Every Day Sex Assigned at Date Recorded Not on file documented as of this encounter Plan of Treatment Not on file documented as of this encounter Visit Diagnoses Not on filedocumented in this encounter Care Teams Physicians Assistant Relationship Specialty Start Date End Date Beba Will MD [address] [place], [place] [phone] PCP - General Internal Medicine 07/20/16 01/22/19 [facility], Pcp [address] [place] [address] PCP - General Internal Medicine 01/23/19 documented as of this encounter
--- OUTSIDE RECORDS SUMMARY | 2024-07-18 11:22 | XMS_ITS | Data Portability ---
Author Organization [facility], [id number] Address [address] [place] [address] Assessment No assessment recorded. Plan of Treatment [...] Diagnosis/Indication Diagnosis SNOMED-CT Code Diagnosis ICD10 Code Diagnosis Note [id number] [address] [place] [phone] 07/25/2019 16:03:53 07/25/2019 16:30:33 [id number] [address] [place] [address] 12/04/2015 14:35:15 12/04/2015 15:21:05 [id number] [address] [place] [address] 0 11/09/2016 15:40:07 11/09/2016 16:39:36 [id number] [address] [place] [address] [phone] 0 09/30/2020 17:01:45 09/30/2020 18:42:55 [id number] [address] [place] [address] 10/30/2016 16:43:15 10/30/2016 17:14:14 Health Concerns Section Related Observation LastModified by Organization Detai ls LastModified Time None Recorded Concern Status LastModified by Organization Details LastModified Time None Recorded Advance Directives Directive None Recorded Payers Encounter Date Sequence Insurance Name Policy Number Policy Mccracken Covered Member ID Mccracken Member ID Guarantor Name 12/04/2015 2 [place] Anastasia Baxter [id number] Anastasia Baxter 10/30/2016 2 [place] Anastasia Neo Baxter [id number] Anastasia M Baxter 11/09/2016 2 [place] Anastasia Neo Baxter [id number] Anastasia Neo Baxter 07/25/2019 2 [place] Anastasia Neo Baxter [id number] Anastasia Neo Baxter 09/30/2020 2 [place] Anastasia Neo Baxter [id number] Anastasia Neo Baxter OBGyn Episode No OBEpisode recorded.
--- OUTSIDE RECORDS SUMMARY | 2024-07-18 11:22 | XMS_ITS | Clinical Summary ---
Author Organization [facility] ity Address [address] [place] [address] Care Team Providers Care Home Appliance Washing Machine Mechanic Name Role Phone Unavailable Primary Care Provider Unavailabl e Medical History Medical History Date Comments Bipolar 2 disorder (CMS/HCC) DX: Bipolar 2 disorder (HCC) History of bacterial endocarditis 09/11/2018 DX:History of bacterial endocarditis; COMMENT: 02/19 MSSA, tricuspid valve Social History Tobacco Use Types Packs/Day Years Used Date Smoking Tobacco: Every Day Comments Unknown Sex and Gender Information Value Date Recorded Sex Assigned at Not on file Legal Sex Female 10:30 AM EST Gender Identity Not on file Sexual Orientation Not on file Obstetrics History Plan of Treatment Health Maintenance Due Date Last Done Comments DTaP,Tdap,and Td Vaccines (1 - Tdap) 2012 Hepatitis B Vaccines (1 of 3 - 19+ 3-dose series) 2012 Cervical Cancer Screening: P ap Smear 2014 COVID-19 Vaccine (2023-2 5 season) 2024 Influenza Vaccine (#1) 2024 HIB Vaccines Aged Out No longer eligi ble based on patient's age to complete this topic HPV Vaccines Aged Out No longer eligi ble based on patient's age to complete this topic Hepatitis A Vaccines Aged Out No long er eligible based on patient's age to complete this topic IPV Vaccines Aged Out No longer eligi ble based on patient's age to complete this topic MMR Vaccines Aged Out No longer eligi ble based on patient's age to complete this topic Meningococcal ACWY Vaccine Aged Out N o longer eligible based on patient's age to complete this topic Meningococcal B Vacine Aged Out No lo nger eligible based on patient's age to complete this topic Pneumococcal Vaccine: Pediat rics (0 to 5 Years) and At-Risk Patients (6 to 64 Years) Aged Out No longer eligible b ased on patient's age to complete this topic RSV Immunization Patients Un gibran 20 months Aged Out No longer eligible b ased on patient's age to complete this topic Varicella Vaccines Aged Out No longer eligible based on patient's age to complete this topic
--- OUTSIDE RECORDS SUMMARY | 2024-07-18 11:22 | XMS_ITS | Data Portability ---
Author Organization [place] - [facility] Address [address] [place] [address] Assessment No assessment recorded. Plan of Treatment [...] SNOMED-CT Code Diagnosis ICD10 Code Diagnosis Note [id number] [address] [phone] 02/27/2018 07:48:13 02/27/2018 07:48:41 Health Concerns Section Related Observation LastModified by Organization Detai ls LastModified Time None Recorded Concern Status LastModified by Organization Details LastModified Time None Recorded Advance Directives Directive None Recorded Payers Encounter Date Sequence Insurance Name Policy Number Policy Mccracken Covered Member ID Mccracken Member ID Guarantor Name 02/20/2018 1 [place] [employer] Anastasia Baxter [id number] Anastasia Baxter 02/20/2018 2 [place] [facility] Anastasia Baxter [id number] Anastasia Baxter OBGyn Episode No OBEpisode recorded.
== END 2024-07-18 11:22 | disposition home or self-care (01) ==
PROVIDERS: PCP Physician Assistant; Visit Provider Physician Assistant
DX: R39.89 Other symptoms and signs involving the genitourinary system (principal); Z13.9 Encounter for screening, unspecified

== ENCOUNTER 2024-07-18 10:32 | Outpatient (REF) | payer OTHER, SELFPAY ==
--- OUTSIDE RECORDS SUMMARY | 2024-07-18 12:04 | XMS_ITS | Encounter Summary ---
Author Organization [facility] Address [address] [place] [address] Care Team Providers Care Labor Relations Consultant Name Role Phone Beba Will MD Primary Care Provider [phone] [facility], Pcp Primary Care Provider Unavailabl e Encounter Details Date Type Department Care Team Description 01/19/2018 Hospital Medical Records [address] [place] [address] Social History Tobacco Use Types Packs/Day Years Used Date Smoking Tobacco: Every Day Sex Assigned at Date Recorded Not on file documented as of this encounter Plan of Treatment Not on file documented as of this encounter Visit Diagnoses Not on filedocumented in this encounter Care Teams Labor Relations Consultant Relationship Specialty Start Date End Date Beba Will MD [address] [place] [address] PCP - General Internal Medicine 07/20/16 01/22/19 [facility], Pcp [address] [place], [place] [id number] PCP - General Internal Medicine 01/23/19 documented as of this encounter
--- OUTSIDE RECORDS SUMMARY | 2024-07-18 12:04 | XMS_ITS | Encounter Summary ---
Author Organization [facility] Address [address] [place] [address] Care Team Providers Care Lead Business Systems Analyst Name Role Phone Beba Will MD Primary Care Provider [phone] [facility], Pcp [facility] Encounter Details Date Type Department Care Team Description 02/13/2018 Hospital Medical Records [address] [place] [address] Leonardo Louie MD Social History Tobacco Use Types Packs/Day Years Used Date Smoking Tobacco: Every Day Sex Assigned at Date Recorded Not on file documented as of this encounter Plan of Treatment Not on file documented as of this encounter Visit Diagnoses Not on filedocumented in this encounter Care Teams Lead Business Systems Analyst Relationship Specialty Start Date End Date Beba Will MD [address] [place], [place] [phone] PCP - General Internal Medicine 07/20/16 01/22/19 [facility], Pcp [address] [place] [address] PCP - General Internal Medicine 01/23/19 documented as of this encounter
--- OUTSIDE RECORDS SUMMARY | 2024-07-18 12:05 | XMS_ITS | Clinical Summary ---
Author Organization [facility] ity Address [address] [place] [phone] Care Team Providers Care Paper Sales Representative Name Role Phone Unavailable Primary Care Provider [...]
--- OUTSIDE RECORDS SUMMARY | 2024-07-18 12:05 | XMS_ITS | Encounter Summary ---
Author Organization [facility] Address [address] [place] [address] Care Team Providers Care Tool Planer Set Up Operator Name Role Phone Beba Will MD Primary Care Provider [phone] [facility], Pcp [facility] Encounter Details Date Type Department Care Team Description 10/03/2018 Biometrician Report Medical Records [address] [place] [address] Erin Duncan MD Social History Tobacco Use Types Packs/Day Years Used Date Smoking Tobacco: Every Day Sex Assigned at Date Recorded Not on file documented as of this encounter Plan of Treatment Not on file documented as of this encounter Visit Diagnoses Not on filedocumented in this encounter Care Teams Tool Planer Set Up Operator Relationship Specialty Start Date End Date Beba Will MD [address] [place], [place] [phone] PCP - General Internal Medicine 07/20/16 01/22/19 [facility], Pcp [address] [place] [address] PCP - General Internal Medicine 01/23/19 documented as of this encounter
[2024-07-18 15:42] LABS: Bacterial Vaginosis PCR NEGATIVE (Negative); Candida Group PCR NOT DETECTED (Not Detect); Candida glab krusei PCR NOT DETECTED (Not Detect); Trichomonas vaginalis PCR NOT DETECTED (Not Detect)
[2024-07-18 16:20] LABS: CT PCR NOT DETECTED (Not Detect.); NG PCR NOT DETECTED (Not Detect.)
== END 2024-07-18 10:33 | disposition home or self-care (01) ==
LOC: HO.LAB 10:32
PROVIDERS: PCP Physician Assistant; Visit Provider Physician Assistant
DX: R39.89 Other symptoms and signs involving the genitourinary system (principal); R30.0 Dysuria
CPT/HCPCS: 81003; 81515; 87491; 87591; 99212

== ENCOUNTER 2024-09-08 14:22 | Outpatient (REF) | payer OTHER, SELFPAY ==
--- OUTSIDE RECORDS SUMMARY | 2024-09-08 18:14 | XMS_ITS | Clinical Summary ---
Author Organization [facility] ity Address [address] [place] [phone] Care Team Providers Care Custom Van Converter Name Role Phone Unavailable Primary Care Provider [...]
[2024-09-09 06:24] LABS: CT PCR NOT DETECTED (Not Detect.); NG PCR NOT DETECTED (Not Detect.)
[2024-09-09 11:03] LABS: Bacterial Vaginosis PCR NEGATIVE (Negative); Candida Group PCR NOT DETECTED (Not Detect); Candida glab krusei PCR NOT DETECTED (Not Detect); Trichomonas vaginalis PCR NOT DETECTED (Not Detect)
== END 2024-09-08 14:23 | disposition home or self-care (01) ==
LOC: HO.LAB 14:22
PROVIDERS: PCP Physician Assistant; Visit Provider Advanced Practice Midwife
DX: Z01.419 Encounter for gynecological examination (general) (routine) without abnormal findings (principal); N89.8 Other specified noninflammatory disorders of vagina; E11.65 Type 2 diabetes mellitus with hyperglycemia; Z11.3 Encounter for screening for infections with a predominantly sexual mode of transmission; Z20.2 Contact with and (suspected) exposure to infections with a predominantly sexual mode of transmission
CPT/HCPCS: 81515; 87491; 87591; 99212; 99459

== ENCOUNTER 2024-09-08 14:22 | Outpatient (AMB) | payer OTHER, SELFPAY ==
[2024-09-08 14:36] VITALS: BP 118/70; BMI 31.8
--- NOTE | 2024-09-08 14:36 | MHC.OFFVIS ---
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 Communication Manager Required: No Communication Manager Services: Communication Manager Present Information Interpreted: clinical only Front Facer: Front Facer Present Allergies seasonal Allergy (Unknown, Uncoded 09/08/24 14:39) unknown Medication List - Last Reconciled 09/08/24 by Claudia Rowe CNM atomoxetine 100 mg PO QAM cholecalciferol (vitamin D3) 50 mcg PO DAILY 90 days semaglutide (Ozempic) 1 mg (0.75 mL) subcut QWEEK 4 weeks Is last menstrual period known: Yes Last menstrual period: 08/25/24 HPI HPI FAMILY RESOURCE MANAGEMENT SPECIALIST annual exam: Details: 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 blood pressure is also very good. her periods have also returned to normal regular pattern. She was sexually active a little while ago but she uses condoms. She does not think she needs blood work for STIs as she had a full panel with her primary care provider. 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 She is not on the control pills anymore and she feels better being off of them and feels more like herself. 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 [facility] Medical History Hepatitis C Polysubstance abuse Endocarditis DMII (diabetes mellitus, type 2) History of renal dialysis Surgical History History of wisdom tooth extraction Family History Maternal Grandmother Diabetes Other Mental health disorder Substance use disorder Social History Housing: House Alcohol intake: current Alcohol intake frequency: holidays/special occasions only Patient Tobacco Use Status: Current everyday Tobacco user Tobacco use type: Cigarette Cigarette Packs Per Day: 0.5 Cigarettes Per Day: 5 e-Cigarette/Vaping Use: Never Used Second Hand Smoke Exposure: Yes Substance Use Type: Crack/Cocaine, IV Drugs and Opiates service: No Current occupational status: employed Current occupation: [employer] Gender identity: Female Cognitive needs: No Hearing needs: No Vision needs: Yes (Glasses) Female Reproductive History Menstrual Age of Menarche: 7 Duration of menses: 3-5 days Date of last menstrual period: 08/25/24 control method: none Total pregnancies: 0 Date of last pap smear: 06/21/23 (neg.2020 WNL) Physical Exam Vital Signs: Last Vital Signs BP 118/70 09/08/24 14:36 BMI result Body Mass Index 31.8 Const General: healthy appearing, comfortable, no acute distress, well developed and alert Nutritional Appearance: average body habitus Orientation/consciousness: patient oriented x3 Limitations: no limitations HEENT Head: Yes normocephalic Neck Neck: Yes normal visual inspection Chest Chest palpation & inspection: normal inspection of the chest Breast/axilla inspection: normal inspection of the breasts and normal inspection of the axillae Breast/axilla palpation: normal palpation of the breasts and normal palpation of the axillae Resp Effort & Inspection: normal respiratory effort GI Inspection: Yes normal to inspection, No Abdominal wall edema and No distended Palpation (GI): Soft to palpation and nontender Other: External exam within normal limits vagina is pink and moist with whitish discharge completely consistent with luteal phase cervix pink healthy appearing no abnormal discharge long close thick mobile nontender uterus slightly difficult to feel secondary to habitus but within normal limits adnexa nontender good muscle tone with Kegel. General: Yes bladder normal to palpation External Female Exam: normal external appearance and normal appearance of the urethra Speculum Exam - Vagina: normal appearance of the vagina, normal palpation and normal vaginal discharge Speculum Exam - Cervix: normal appearance of the cervix, normal palpation and nontender Bimanual exam- vagina & uterus: normal bimanual exam, normal palpation, uterine size normal, bladder normal to palpation, consistency normal, normal palpation, uterine mobility normal, uterine shape normal, No Cervical tenderness present, non-tender and no cervical motion tenderness Bimanual Exam- Adnexa, other: normal adnexae, no masses, normal and No adnexal tenderness Neuro General: patient oriented x3 Results Reviewed Results Reviewed: Pap smear of 2023 is negative Assessment & Plan Assessment & Plan (1) DMII (diabetes mellitus, type 2): Comment: 09/08/2024 patient states all her sugars are really good as she continues with her weight loss, and her blood pressure has also normalized... Code(s): E11.9 - Type 2 diabetes mellitus without complications Category: Medical Qualifiers: Diabetes mellitus terminal worker insulin use: without retirement use Diabetes mellitus complication status: with hyperglycemia Qualified Code(s): E11.65 - Type 2 diabetes mellitus with hyperglycemia (2) Family planning counseling: Code(s): Z30.09 - Encounter for other general counseling and advice on contraception Category: Medical (3) Cervical cancer screening: Comment: Last Pap was negative 2019; 06/20/2023 Pap is negative. Code(s): Z12.4 - Encounter for screening for malignant neoplasm of cervix Category: Medical (4) Well woman exam with routine gynecological exam: Code(s): Z01.419 - Encounter for gynecological examination (general) (routine) without abnormal findings Category: Medical (5) Encounter for screening examination for sexually transmitted disease: Code(s): Z11.3 - Encounter for screening for infections with a predominantly sexual mode of transmission Category: Medical (6) control counseling: Code(s): Z30.09 - Encounter for other general counseling and advice on contraception Category: Medical Plan -----Discussed in this visit the following: healthy balanced diet, regular and consistent exercise, getting recommended health screens, doing the best she can for her particular health concerns, kegel exercises, pap smear screening and followup recommendations, mammography screening and SBE, normal changes in cycles in her life stage--- . reviewed how well she is doing with her continued efforts at healthy eating and exercise and weight loss aided with the Ozempic which is helping her with her diabetes and her elevated blood pressures which have normalized. She is doing really really well. Discussed normal cycles and the question about whether not somebody should have their hormones tested because they are experiencing menstrual cycle cyclic changes and when does a crossover into being PMDD discussed the range of human experiences with the same symptoms and how they maybe labeled differently for different people. Discussed signs and symptoms of ovulation and she is now able to tell when she ovulates. Discussed also that now that her periods have become more regular and she is probably ovulating more regularly to be extra attentive to that when she is sexually active as fertility can increase when people lose weight. testing done today for GC chlamydia and trich as well as BV and yeast and discussed why the latter to only need to be treated if they are symptomatic. I also offered her a prescription for Plan B should a condom break and she accepted. Orders: Orders Bacterial Vaginosis Panel Today N89.8 - Other specified noninflammatory disorders of vagina CT NG by PCR Today N89.8 - Other specified noninflammatory disorders of vagina, Z20.2 - Contact with and (suspected) exposure to infections with a predominantly sexual mode of transmission Medications: New levonorgestrel (Plan B One-Step) 1.5 mg PO ONCE 1 tab 4RF Coding Level of Care Code Est Pt Prev Care 18-39y(00439) Diagnoses Type 2 diabetes mellitus with hyperglycemia, without long-term current use of insulin E11.65 Diabetes mellitus terminal worker insulin use: without retirement use Diabetes mellitus complication status: with hyperglycemia Family planning counseling Z30.09 Cervical cancer screening Z12.4 Well woman exam with routine gynecological exam Z01.419 Encounter for screening examination for sexually transmitted disease Z11.3 control counseling Z30.09
--- OUTSIDE RECORDS SUMMARY | 2024-09-08 17:10 | XMS_ITS | Data Portability ---
Author Organization [place] - [facility] Address [address] [place] [address] Assessment No assessment recorded. Plan of Treatment [...] SNOMED-CT Code Diagnosis ICD10 Code Diagnosis Note [id number] [address] [phone] 02/27/2018 07:48:13 02/27/2018 07:48:41 Health Concerns Section Related Observation LastModified by Organization Detai ls LastModified Time None Recorded Concern Status LastModified by Organization Details LastModified Time None Recorded Advance Directives Directive None Recorded Payers Encounter Date Sequence Insurance Name Policy Number Policy Mccracken Covered Member ID Mccracken Member ID Guarantor Name 02/20/2018 1 [place] [employer] Anastasia Baxter [id number] Anastasia Baxter 02/20/2018 2 [place] [facility] Anastasia Baxter [id number] Anastasia Baxter OBGyn Episode No OBEpisode recorded.
--- OUTSIDE RECORDS SUMMARY | 2024-09-08 17:10 | XMS_ITS | Data Portability ---
Author Organization [facility], [id number] Address [address] [place] [address] Assessment No assessment recorded. Plan of Treatment [...] SNOMED-CT Code Diagnosis ICD10 Code Diagnosis Note [id number] [address] [place] [phone] 07/25/2019 16:03:53 07/25/2019 16:30:33 [id number] [address] [place] [phone] 12/04/2015 14:35:15 12/04/2015 15:21:05 [id number] [address] [place] [address] 11/09/2016 15:40:07 11/09/2016 16:39:36 [id number] [address] [place] [address] 09/30/2020 17:01:45 09/30/2020 18:42:55 [id number] [address] [place] [address] 10/30/2016 16:43:15 10/30/2016 17:14:14 Health Concerns Section Related Observation LastModified by Organization Detai ls LastModified Time None Recorded Concern Status LastModified by Organization Details LastModified Time None Recorded Advance Directives Directive None Recorded Payers Encounter Date Sequence Insurance Name Policy Number Policy Mccracken Covered Member ID Mccracken Member ID Guarantor Name 12/04/2015 2 [place] Anastasia Baxter [id number] Anastasia Baxter 10/30/2016 2 [place] Anastasia Baxter [id number] Anastasia Baxter 11/09/2016 2 [place] Anastasia Baxter [id number] Anastasia Baxter 07/25/2019 2 [place] Anastasia Baxter [id number] Anastasia Baxter 09/30/2020 2 [place] Anastasia Baxter [id number] Anastasia Baxter OBGyn Episode No OBEpisode recorded.
--- OUTSIDE RECORDS SUMMARY | 2024-09-08 17:10 | XMS_ITS | Clinical Summary ---
Author Organization [facility] it[facility] Address [address] [place] [phone] Care Team Providers Care Bricklayer Apprentice Name Role Phone Unavailable Primary Care Provider [...] age to complete this topic Meningococcal B Vaccine Aged Out No l onger eligible based on patient's age to complete [...]
== END 2024-09-08 15:35 | disposition home or self-care (01) ==
LOC: HO.HWS 14:22
PROVIDERS: PCP Physician Assistant; Visit Provider Advanced Practice Midwife
DX: Z01.419 Encounter for gynecological examination (general) (routine) without abnormal findings (principal); E11.65 Type 2 diabetes mellitus with hyperglycemia
CPT/HCPCS: 99395; 99459

== ENCOUNTER 2024-09-30 14:08 | Outpatient (AMB) | payer OTHER, SELFPAY ==
--- NOTE | 2024-09-30 14:03 | MHC.PC.OV ---
Intake Visit Reasons: f/u DMI/weight check, reschedule Cash Management Officer Required: No Information Interpreted: non-clinical & clinical Ramp Jockey: Not Required per policy Allergies seasonal Allergy (Unknown, Uncoded 09/30/24 14:12) unknown Medication List - Last Reconciled 09/30/24 by Ramy Jackson PA-C atomoxetine 100 mg PO QAM cholecalciferol (vitamin D3) 50 mcg PO DAILY 90 days levonorgestrel (Plan B One-Step) 1.5 mg PO ONCE semaglutide (Ozempic) 1 mg (0.75 mL) subcut QWEEK 4 weeks Tobacco use date assessed: 02/07/24 Dental Screening Dental Screen Date: 02/07/24 HPI f/u DMI/weight check, reschedule HPI Details Patient is a 29 year female here today for a follow up ?Patient has a past medical history significant for opiate dependence, smoker ,history of endocarditis, type 2 diabetes. ADD: She reports having a diagnosis of ADHD as a child and was treated with many different medications. She is now on Strattera 100 mg which seems to be helpful. She is now seeing a mental therapist and a psychiatrist .. Class 1 obesity: The patient's weight is documented at 228 pounds, with a history of fluctuations previously higher at 247 pounds. She is motivated to lose weight and we have increased her Ozempic dose to 1 mg weekly which has offered her more weight reduction. She reports recent strict dietary efforts and increasing physical activity despite feelings of exhaustion. Recent lab results show an A1c of 5.2, indicating good diabetes control. .? Type 2 diabetes:? Was on metformin in the past which did control her diabetes. Continues on Ozempic 1 mg weekly. She does report losing more weight. . .. Opiate dependence (in remission):? She has completely weaned off Suboxone . Now been sober from street opiates over the last 6 years?. 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 [facility] Medical History Hepatitis C Polysubstance abuse Endocarditis DMII (diabetes mellitus, type 2) History of renal dialysis Surgical History History of wisdom tooth extraction Family History Maternal Grandmother Diabetes Other Mental health disorder Substance use disorder Social History Housing: House Alcohol intake: current Alcohol intake frequency: holidays/special occasions only Patient Tobacco Use Status: Current everyday Tobacco user Tobacco use type: Cigarette Cigarette Packs Per Day: 0.5 Cigarettes Per Day: 5 e-Cigarette/Vaping Use: Never Used Second Hand Smoke Exposure: Yes Substance Use Type: Crack/Cocaine, IV Drugs and Opiates service: No Current occupational status: employed Current occupation: [employer] Gender identity: Female Cognitive needs: No Hearing needs: No Vision needs: Yes (Glasses) Female Reproductive History Menstrual Age of Menarche: 7 Questionnaire PHQ-9 Over the last 2 weeks, how often have you been bothered by any of the following problems? 1. Little interest or pleasure in doing things: more than half the days 2. Feeling down, depressed, or hopeless: more than half the days 3. Trouble falling or staying asleep, or sleeping too much: more than half the days 4. Feeling tired or having little energy: several days 5. Poor appetite or overeating: more than half the days 6. Feeling bad about yourself - or that you are a failure or have let yourself or your family down: nearly every day 7. Trouble concentrating on things, such as reading the newspaper or watching television: several days 8. Moving or speaking so slowly that other people could have noticed. Or the opposite - being so fidgety or restless that you have been moving around a lot more than usual: several days 9. Thoughts that you would be better off or of hurting yourself in some way: not at all Total score: 14 29098 - PHQ-9 Billing: Yes Source: Developed by Drs. Rubens Fine, Akiko Simmons, Anastacio Singh and colleagues, with an educational rachel from [employer]. Thrive Questionnaire Date Thrive assessed: 09/30/24 I am a: Patient What is your living situation today?: I have a steady place to live Within the past 12 months, did the food you bought not last and you didn't have the money to get more?: I choose not to answer this question Within the past 12 months, did you worry whether your food would run out before you got money to buy more?: I choose not to answer this question Do you have trouble paying for medicines?: No Do you have trouble getting transportation to medical appointments?: No Do you have trouble paying your heating and electricity bill?: No Do you have trouble taking care of your child, family member or friend?: No Do you have trouble with day-to-day activities such as bathing, preparing meals, shopping, managing finances, etc.?: No Are you currently unemployed and looking for a job?: No Are you interested in more education?: Yes Please select the resources that you would like help with: None Currently or been in a relationship where the following occur: I choose not to answer THRIVE Score: 0 AUDIT C Alcohol Use Questionnaire (AUDIT-C) 1. How often do you have a drink containing alcohol?: 2-4 times a month 2. How many drinks containing alcohol do you have on a typical day when you are drinking?: 3 or 4 3. How often do you have six or more drinks on one occasion?: Monthly Total Score: 5 VALDEZ-7 AMB Questionnaire VALDEZ-7 Date VALDEZ - 7 assessed: 09/30/24 Feeling nervous, anxious, or on edge: 2 = More than half the days Not being able to stop or control worryin = More than half the days Worrying too much about different things: 2 = More than half the days Trouble relaxin = Several days Being so restless that it is hard to sit still: 1 = Several days Becoming easily annoyed or irritable: 2 = More than half the days Feeling afraid as if something awful might happen: 3 = Nearly every day Total VALDEZ-7 score (0-4 normal; 5-9 mild; 10-14 moderate; 15-21 severe): 13 Source: Developed by Drs. Rubens Fine, Akiko Simmons, Anastacio Singh and colleagues, with an educational rachel from [employer]. VALDEZ-7 Assessment Billing VALDEZ-7 Assessment Tool: VALDEZ-7 Assessment 99157 Review of Systems Const Denies headache(s) Eyes Denies loss of vision ENT Denies vertigo, Denies dizziness, Denies headache(s) and Denies sore throat Card Denies chest pain, Denies leg edema and Denies lightheadedness Resp Denies cough, Denies hemoptysis and Denies wheezing GI Denies abdominal pain, Denies melena, Denies constipation, Denies diarrhea and Denies vomiting Denies urinary frequency, Denies dysuria and Denies urinary urgency Musc Denies arthralgias, Denies joint swelling, Denies numbness and Denies tingling Neuro Denies behavioral changes, Denies vertigo, Denies dizziness, Denies headache(s), Denies loss of vision, Denies memory loss, Denies numbness and Denies tingling Psych Denies anxiety, Denies behavioral changes, Denies depression, Denies memory loss and Denies panic attacks Louis/Lymph Denies easy bleeding and Denies easy bruising Aller/Immun Denies wheezing Physical exam (Primary Care) Tobacco/Smoking Status: Tobacco use Status Tobacco use date assessed 02/07/24 09/30/24 14:07 Patient Tobacco Use Status Current everyday Tobacco 09/30/24 14:07 Tobacco use type Cigarette 09/30/24 14:07 e-Cigarette/Vaping Use Never Used 09/30/24 14:07 Are you ready to quit: No Tobacco cessation counseling provided: Yes Items discussed: Nicotine replacement Relapse Prevention: discussed the importance of a supportive environment, discussed negative mood or depression after quitting, weight gain after smoking is common and discussed dietary, exercise and/or lifestyle changes Number of minutes spent counselin CPT code: 92035 - 4-10 Minutes PHQ-9: PHQ-9 Score PHQ-9: Total score 14 09/30/24 14:07 Thrive Assessment: Date of Thrive Assessment Date Thrive assessed 09/30/24 09/30/24 14:07 Currently or been in a relationship where the following occur: I choose not to answer Telehealth Telehealth Telehealth Platform: Telephone Location of provider rendering services: practice address Location of patient: address on file Patient Identification confirmed using: Name, : Yes Telehealth method: voice only Patient verbally consented to treatment: Yes Patient verbally consented to billing insurance company: Yes Patient informed of any privacy concerns related to visit: Yes Minutes spent on Phone/Video with Pt.: 11 Coding Level of Care Code Tele Est Pt Level 4 (59144) Diagnoses Type 2 diabetes mellitus with hyperglycemia, without long-term current use of insulin E11.65 Diabetes mellitus exterminator helper termite insulin use: without exterminator helper termite use Diabetes mellitus complication status: with hyperglycemia Smoker F17.200 Additional Codes VALDEZ-7 Assessment Billing - VALDEZ-7 Assessment Tool: VALDEZ-7 Assessment 23113 ([id number]) PHQ-9 - 43232 - PHQ-9 Billing: Yes ([id number]) Vital Signs *Quality* - CPT code: 05011 - 4-10 Minutes ([id number]) Assessment & Plan Assessment & Plan (1) DMII (diabetes mellitus, type 2): Comment: 09/08/2024 patient states all her sugars are really good as she continues with her weight loss, and her blood pressure has also normalized... Code(s): E11.9 - Type 2 diabetes mellitus without complications Category: Medical Qualifiers: Diabetes mellitus residential insulin use: without exterminator helper termite use Diabetes mellitus complication status: with hyperglycemia Qualified Code(s): E11.65 - Type 2 diabetes mellitus with hyperglycemia Plan: Patient's type 2 diabetes well controlled with A1c at 5.2. We have increased her Ozempic to 1 mg, denies any hypoglycemic events. She does report more weight loss since increasing Ozempic. A1c goal is to remain below 6.5 (2) Smoker: Code(s): F17.200 - Nicotine dependence, unspecified, uncomplicated Category: Social Hx Plan: Patient does understand she needs to quit smoking completely and has found it difficult to do so due to stress in her life. He has cut down some though still continues to smoke depending on her stress level. She has tried nicotine gum though did not feel it was effective. She is not interested in any nicotine replacement therapy. Orders: Orders Comprehensive [place]. Panel Fast Today E11.65 - Type 2 diabetes mellitus with hyperglycemia Microalbumin, Random (w Creat) Today E11.65 - Type 2 diabetes mellitus with hyperglycemia Hemoglobin A1c Today E11.65 - Type 2 diabetes mellitus with hyperglycemia Complete Blood Count no Diff Today E11.65 - Type 2 diabetes mellitus with hyperglycemia Medications: New ondansetron HCl 4 mg PO Q8H 7 days PRN 21 tabs 0RF nausea and vomiting
--- OUTSIDE RECORDS SUMMARY | 2024-09-30 16:20 | XMS_ITS | Data Portability ---
Author Organization [facility], [address] Address [address] [place] [address] Assessment No assessment recorded. Plan of Treatment [...] SNOMED-CT Code Diagnosis ICD10 Code Diagnosis Note [id number] [address] [place] [address] 07/25/2019 16:03:53 07/25/2019 16:30:33 [id number] [address] [place] [address] 12/04/2015 14:35:15 12/04/2015 15:21:05 [id number] [address] [place] [address] 11/09/2016 15:40:07 11/09/2016 16:39:36 [id number] [address] [place] [address] 0 09/30/2020 17:01:45 09/30/2020 18:42:55 [id number] [address] [facility] [place] [address] 10/30/2016 16:43:15 10/30/2016 17:14:14 Health Concerns Section Related Observation LastModified by Organization Detai ls LastModified Time None Recorded Concern Status LastModified by Organization Details LastModified Time None Recorded Advance Directives Directive None Recorded Payers Encounter Date Sequence Insurance Name Policy Number Policy Mccracken Covered Member ID Mccracken Member ID Guarantor Name 12/04/2015 2 [place] Anastasia Baxter [id number] Anastasia Baxter 10/30/2016 2 [place] Anastasia Baxter [id number] Anastasia Baxter 11/09/2016 2 [place] Anastasia Baxter [id number] Anastasia Baxter 07/25/2019 2 [place] Anastasia Baxter [id number] Anastasia Baxter 09/30/2020 2 [place] Anastasia Baxter [id number] Anastasia Baxter OBGyn Episode No OBEpisode recorded.
--- OUTSIDE RECORDS SUMMARY | 2024-09-30 16:20 | XMS_ITS | Clinical Summary ---
[facility] Address [address] [place] [address] Care Team Providers Care Ophthalmic Technician Name Role Phone Unavailable Primary Care Provider Unavailabl e Medical History Medical History Date Comments Bipolar 2 disorder (CMS/HCC V24, CMS/HCC V28) DX:Bipolar 2 disorder (HCC) History of bacterial endocarditis [...] Vaccine (2023-2 5 season) 2024 Influenza Vaccine (Season Ended) 2025 HIB Vaccines Aged Out No longer eligi [...]
--- OUTSIDE RECORDS SUMMARY | 2024-09-30 16:20 | XMS_ITS | Encounter Summary ---
Author Organization [facility] Address [address] [place] [address] Care Team Providers Care Medical Referral Coordinator Name Role Phone Beba Will MD Primary Care Provider [facility], Pcp [facility] Encounter Details Date Type Department Care Team Description 10/03/2018 Infrastructure Developer Report Medical Records [address] [place] [address] Erin Duncan MD Social History Tobacco Use Types Packs/Day Years Used Date Smoking Tobacco: Every Day Sex Assigned at Date Recorded Not on file documented as of this encounter Plan of Treatment Not on file documented as of this encounter Visit Diagnoses Not on filedocumented in this encounter Care Teams Medical Referral Coordinator Relationship Specialty Start Date End Date Beba Will MD [address] [place], [place] [phone] PCP - General Internal Medicine 07/20/16 01/22/19 [facility], Pcp [address] [place] [address] PCP - General Internal Medicine 01/23/19 documented as of this encounter
--- OUTSIDE RECORDS SUMMARY | 2024-09-30 16:20 | XMS_ITS | Data Portability ---
Author Organization [place] [facility] Address [address] [place] [address] Assessment No assessment recorded. Plan of Treatment [...] SNOMED-CT Code Diagnosis ICD10 Code Diagnosis Note [id number] [address] [address] 02/27/2018 07:48:13 02/27/2018 07:48:41 Health Concerns Section Related Observation LastModified by Organization Detai ls LastModified Time None Recorded Concern Status LastModified by Organization Details LastModified Time None Recorded Advance Directives Directive None Recorded Payers Encounter Date Sequence Insurance Name Policy Number Policy Mccracken Covered Member ID Mccracken Member ID Guarantor Name 02/20/2018 1 [place] [employer] Anastasia Baxter [id number] Anastasia Baxter 02/20/2018 2 [place] [facility] Anastasia Baxter [id number] Anastasia Baxter OBGyn Episode No OBEpisode recorded.
--- OUTSIDE RECORDS SUMMARY | 2024-09-30 16:20 | XMS_ITS | Encounter Summary ---
Author Organization [facility] Address [address] [place] [address] Care Team Providers Care Hose Tender Name Role Phone Beba Will MD Primary Care Provider [phone] [facility], Pcp Primary Care Provider Unavailabl e Encounter Details Date Type Department Care Team Description 01/19/2018 Hospital Medical Records [address] [place] [address] Social History Tobacco Use Types Packs/Day Years Used Date Smoking Tobacco: Every Day Sex Assigned at Date Recorded Not on file documented as of this encounter Plan of Treatment Not on file documented as of this encounter Visit Diagnoses Not on filedocumented in this encounter Care Teams Hose Tender Relationship Specialty Start Date End Date Beba Will MD [address] [place] [address] PCP - General Internal Medicine 07/20/16 01/22/19 [facility], Pcp [address] [place], [place] [phone] PCP - General Internal Medicine 01/23/19 documented as of this encounter
--- OUTSIDE RECORDS SUMMARY | 2024-09-30 16:20 | XMS_ITS | Encounter Summary ---
Author Organization [facility] Address [address] [place] [address] Care Team Providers Care Church Warden Name Role Phone Beba Will MD Primary Care Provider [phone] [facility], Pcp [facility] Encounter Details Date Type Department Care Team Description 02/13/2018 Hospital Medical Records [address] [place] [address] Leonardo Louie MD Social History Tobacco Use Types Packs/Day Years Used Date Smoking Tobacco: Every Day Sex Assigned at Date Recorded Not on file documented as of this encounter Plan of Treatment Not on file documented as of this encounter Visit Diagnoses Not on filedocumented in this encounter Care Teams Church Warden Relationship Specialty Start Date End Date Beba Will MD [address] [place], [place] [phone] PCP - General Internal Medicine 07/20/16 01/22/19 [facility], Pcp [address] [place] [address] PCP - General Internal Medicine 01/23/19 documented as of this encounter
== END 2024-09-30 16:36 | disposition home or self-care (01) ==
LOC: HO.HMCH 14:08
PROVIDERS: PCP Physician Assistant; Visit Provider Physician Assistant
DX: E11.65 Type 2 diabetes mellitus with hyperglycemia (principal); F17.200 Nicotine dependence, unspecified, uncomplicated

== ENCOUNTER → 2024-09-30 14:08 | Outpatient (BNVA) | payer OTHER, SELFPAY | PROVIDERS: PCP Physician Assistant; Visit Provider Physician Assistant | DX: E11.65 Type 2 diabetes mellitus with hyperglycemia (principal); F17.210 Nicotine dependence, cigarettes, uncomplicated | CPT/HCPCS: 96127 ==

== ENCOUNTER 2024-11-19 15:38 | Outpatient (REF) | payer OTHER, SELFPAY ==
[2024-11-20 12:49] LABS: Bacterial Vaginosis PCR NEGATIVE (Negative); Candida Group PCR NOT DETECTED (Not Detect); Candida glab krusei PCR NOT DETECTED (Not Detect); Trichomonas vaginalis PCR NOT DETECTED (Not Detect)
[2024-11-20 13:25] LABS: CT PCR NOT DETECTED (Not Detect.); NG PCR NOT DETECTED (Not Detect.)
== END 2024-11-19 15:39 | disposition home or self-care (01) ==
LOC: HO.LAB 15:38
PROVIDERS: Physician Assistant; PCP Physician Assistant
DX: Z11.3 Encounter for screening for infections with a predominantly sexual mode of transmission (principal); N39.0 Urinary tract infection, site not specified; E11.65 Type 2 diabetes mellitus with hyperglycemia; F17.210 Nicotine dependence, cigarettes, uncomplicated; Z72.51 High risk heterosexual behavior; Z13.9 Encounter for screening, unspecified
CPT/HCPCS: 81003; 81515; 82948; 87086; 87491; 87591; 99212

== ENCOUNTER 2024-11-19 15:38 | Outpatient (AMB) | payer OTHER, SELFPAY ==
[2024-11-19 15:54] VITALS: BP 104/88; PULSE 110; TEMP 36.8; O2SAT 97; BMI 31.7
--- NOTE | 2024-11-19 15:54 | AM.OFFWIN_ITS ---
Intake Vital Signs 11/19/24 15:54 Height 5 ft 11 in Weight 227 lb 6 oz BMI 31.7 BP 104/88 Blood Pressure Location Lt brachial Position Sitting Pulse 110 H Pulse Source Pulse Oximeter Temp 98.3 F Temp Source Oral Pulse Oximetry (%) 97 Oxygen Delivery Method Room Air Intake Visit Reasons: PE Yeast? 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 - Reports discomfort during urination an d a sensation of incomplete bladder emptying, with lower abdominal pain. - Symptoms have been present for an unsp ecified duration, with concern for worsening. - she denies any fevers low back pain bl ood in her urine or abnormal vaginal discharge or odors - History of Type 2 Diabetes Mellitus, c urrently on Ozempic, with noted dietary non-adherence, does not check her blood sugars regularly and is wondering what her blood sugar is. She states she has been eating terrible and lots of carbs of the last few weeks - she states she has 1 sexual partner bu t it is not her boyfriend and she believes he is sexually active with other people and would like gonorrhea chlamydia and Trichomonas testing. Physical Exam General: Cooperative, healthy appearing, comfortable, no acute distress and well developed Orientation: Patient oriented x3 Limitations: No limitations Head: Normal to inspection Ears: Hearing grossly normal bilaterally Nose: Normal External nose present Face and sinus: Normal facial exam Eyes: Appearance normal, both eyes and all related structures Neck: Normal visual inspection and Yes full ROM Respiratory: Normal respiratory effort and able to speak in complete sentences. Skin: No rashes or lesions noted Neuro: Patient oriented x3 Extremities: Normal to inspection [facility] Medical History Hepatitis C Polysubstance abuse Endocarditis DMII (diabetes mellitus, type 2) History of renal dialysis Surgical History History of wisdom tooth extraction Family History Maternal Grandmother Diabetes Other Mental health disorder Substance use disorder Social History Housing: House Alcohol intake: current Alcohol intake frequency: holidays/special occasions only Patient Tobacco Use Status: Current everyday Tobacco user Tobacco use type: Cigarette Cigarette Packs Per Day: 0.5 Cigarettes Per Day: 5 e-Cigarette/Vaping Use: Never Used Second Hand Smoke Exposure: Yes Substance Use Type: Crack/Cocaine, IV Drugs and Opiates service: No Current occupational status: employed Current occupation: [employer] Gender identity: Female Cognitive needs: No Hearing needs: No Vision needs: Yes (Glasses) Female Reproductive History Menstrual Age of Menarche: 7 Review of Systems Const All systems reviewed & are unremarkable except as noted in HPI and below Physical Exam Vital Signs: Last Vital Signs Temp 98.3 F 11/19/24 15:54 Pulse 110 H 11/19/24 15:54 BP 104/88 11/19/24 15:54 Pulse Ox 97 11/19/24 15:54 Oxygen Delivery Method Room Air 11/19/24 15:54 BMI result Body Mass Index 31.7 Results AMB Urinalysis, Automated UA Leukoctes 0 Ysabel/uL Last Edit by Diane Balderas MA on 11/19/24 16:13 UA Nitrite Negative Last Edit by Diane Balderas MA on 11/19/24 16:13 UA Urobilinogen 0.2 mg/dL Last Edit by Diane Balderas MA on 11/19/24 16:13 UA Protein 15 mg/dL Last Edit by Diane Balderas MA on 11/19/24 16:13 UA pH 6.0 Last Edit by Diane Balderas MA on 11/19/24 16:13 UA Blood 0 Elvin/uL Last Edit by Diane Balderas MA on 11/19/24 16:13 UA Specific [place] 1.030 Last Edit by Diane Balderas MA on 11/19/24 16:13 UA Ketone Negative Last Edit by Diane Balderas MA on 11/19/24 16:13 UA Bilirubin 0 mg/dL Last Edit by Diane Balderas MA on 11/19/24 16:13 UA Glucose 0 mg/dL Last Edit by Diane Balderas MA on 11/19/24 16:13 AMB Random Glucose (hemocue) AMB Random Glucose (hemocue) 93 mg/dL Last Edit by Garrett Mendoza CMA on 11/19/24 16:19 Assessment & Plan Assessment & Plan (1) Urinary tract infection symptoms: Code(s): R39.9 - Unspecified symptoms and signs involving the genitourinary system Plan: - Prescribe Cefuroxime for suspected urinary tract infection, twice daily for five days. - Send urine culture to confirm infection and guide further treatment if necessary. Patient was informed and verbally consented to the use of an ambient scribe for clinic note documentation during this visit. (2) DMII (diabetes mellitus, type 2): Comment: 09/08/2024 patient states all her sugars are really good as she continues with her weight loss, and her blood pressure has also normalized... 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 - Random glucose was 93mg/dL. (3) Risk for sexually transmitted infection: Code(s): Z72.51 - High risk heterosexual behavior Plan: Sent bacterial vaginosis panel as well as gonorrhea chlamydia testing. We will treat based on results. Orders: Orders Bacterial Vaginosis Panel Today Z11.3 - Encounter for screening for infections with a predominantly sexual mode of transmission AMB Random Glucose (hemocue) Today Z13.9 - Encounter for screening, unspecified AMB Urinalysis Automated Today Z13.9 - Encounter for screening, unspecified CT NG by PCR Today Z11.3 - Encounter for screening for infections with a predominantly sexual mode of transmission Urine Culture Today N39.0 - Urinary tract infection, site not specified Medications: New cefuroxime axetil 500 mg PO Q12H 10 tabs 0RF Coding Level of Care Code Est Pt Level 4 (05741) Diagnoses Urinary tract infection symptoms R39.9 Type 2 diabetes mellitus with hyperglycemia, without long-term current use of insulin E11.65 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
--- OUTSIDE RECORDS SUMMARY | 2024-11-19 17:49 | XMS_ITS | Data Portability ---
Author Organization [facility], [address] Address [address] [place] [address] Assessment No assessment recorded. Plan of Treatment [...] SNOMED-CT Code Diagnosis ICD10 Code Diagnosis Note [id number] [facility] [place] [address] 07/25/2019 16:03:53 07/25/2019 16:30:33 [id number] [facility] [facility] [address] [place] [address] 12/04/2015 14:35:15 12/04/2015 15:21:05 [id number] [address] [address] [place] [address] 11/09/2016 15:40:07 11/09/2016 16:39:36 [id number] [address] [place] [address] 09/30/2020 17:01:45 09/30/2020 18:42:55 [id number] [address] [facility] [address] [place] [address] 10/30/2016 16:43:15 10/30/2016 17:14:14 Health Concerns Section Related Observation LastModified by Organization Detai ls LastModified Time None Recorded Concern Status LastModified by Organization Details LastModified Time None Recorded Advance Directives Directive None Recorded Payers Insurance Date Sequence Insurance Name Policy Number Policy Mccracken Covered Member ID Mccracken Member ID Guarantor Name 04/24/2022 1 [facility] - DOS PRIOR TO 2022 - DUAL ELIGIBLE (MEDICARE REPLACEMENT/AD VANTAGE - HMO) Anastasia aBxter [id number] Anastasia Baxter 04/24/2022 2 [place] [facility] Anastasia Baxter [id number] Anastasia Baxter OBGyn Episode No OBEpisode recorded.
== END 2024-11-19 16:27 | disposition home or self-care (01) ==
PROVIDERS: PCP Physician Assistant; Visit Provider Physician Assistant
DX: R39.9 Unspecified symptoms and signs involving the genitourinary system (principal); E11.65 Type 2 diabetes mellitus with hyperglycemia; Z72.51 High risk heterosexual behavior; Z13.9 Encounter for screening, unspecified